=== PATIENT | female | born 1950 | race African-American/Black ===

== ENCOUNTER → 2016-05-16 | Outpatient (CLI) | payer BC ==
[~2016-05-16] MED LIST: HYDR200T5 PO; IBUP-1060 PO; TRAM50TA PO
--- NOTE | 2016-05-16 10:05 | RAD ---
DATE: 05/16/2016 EXAM: DIGITAL SCREEN BILAT W/CAD HISTORY: Screening COMPARISON: 04/30/2015 This study was interpreted with the benefit of Computerized Aided Detection (CAD). FINDINGS: The breast parenchyma shows scattered fibroglandular densities. Breast parenchyma level B. There has not been a significant change in the appearance of the breasts compared to the previous exam. There is no area of increased density in the left breast on the cc view just lateral to the plane of the nipple compatible with summation artifact similar to previous exams IMPRESSION: Benign findings BI-RADS CATEGORY: 2 BENIGN FINDING(S) RECOMMENDED FOLLOW-UP: 12M 12 MONTH FOLLOW-UP PQRS compliance statement: Patient information was entered into a reminder system with a target due date 05/16/2017 for the next mammogram. Mammography is a sensitive method for finding small breast cancers, but it does not detect them all and is not a substitute for careful clinical examination. A negative mammogram does not negate a clinically suspicious finding and should not result in delay in biopsying a clinically suspicious abnormality. "Our facility is accredited by the [employer] Mammography [employer]."
== END | disposition home or self-care (01) ==
LOC: MAMMO 10:48
PROVIDERS: ATTEND Internal Medicine
DX: Z12.31 Encounter for screening mammogram for malignant neoplasm of breast (principal)
CPT/HCPCS: 77052; G0202

== ENCOUNTER → 2017-06-12 | Outpatient (CLI) | payer MEDICARE | END | disposition home or self-care (01) | LOC: MAMMO 10:49 | DX: Z12.31 Encounter for screening mammogram for malignant neoplasm of breast (principal) | CPT/HCPCS: 77067 ==

== ENCOUNTER → 2018-07-06 | Outpatient (CLI) | payer MEDICARE ==
--- NOTE | 2018-07-08 09:43 | RAD ---
DATE: July 06, 2018 EXAM: MAMMO MARIA LUZ SCREENING BILATERAL HISTORY: Screening study. COMPARISON: 2014 and 2016 and 2018 2-D digital mammographic views of both breasts were performed in the CC and MLO projections. 3-D digital tomosynthesis images of both breasts were performed in the CC and MLO projections and reviewed on a computer workstation. This study was interpreted with the benefit of Computerized Aided Detection (CAD). FINDINGS: Breast Density: SCATTERED The breast parenchyma shows scattered fibroglandular densities. Breast parenchyma level B.. There are no dominant suspicious masses, suspicious microcalcifications or evidence of architectural distortion. Bilateral small breast nodules are seen which are similar in density and shape and contour consistent with a benign finding. IMPRESSION: No mammographic indicators for malignancy. BI-RADS CATEGORY: 2 BENIGN FINDING RECOMMENDED FOLLOW-UP: 12M 12 MONTH FOLLOW-UP PQRS compliance statement: Patient information was entered into a reminder system with a target due date July 07, 2019 for the next mammogram. Mammography is a sensitive method for finding small breast cancers, but it does not detect them all and is not a substitute for careful clinical examination. A negative mammogram does not negate a clinically suspicious finding and should not result in delay in biopsying a clinically suspicious abnormality. "Our facility is accredited by the [employer] Mammography [employer]." The patient's breast density may affect the ability of mammography to detect breast cancer. There are 4 categories of breast density, A, B, C and D. Breast density A means that most of the breast tissue is replaced with adipose tissue and therefore is not dense. Breast density B means that the breast tissue is mildly dense and scattered. Breast density C means that the breast tissue is heterogeneously dense. Breast density D means that the breast tissue is very dense. Breast densities especially C and D may decrease the sensitivity of mammography to detect breast cancer. Therefore, the patient may benefit from 3-D breast mammography (3D breast tomography) as a part of their screening mammogram. Insurance may or may not pay for this additional imaging. The patient's breast density based on today's mammogram is category B.
== END | disposition home or self-care (01) ==
LOC: MAMMO 09:23
PROVIDERS: ATTEND Nurse Practitioner Gerontology
DX: Z12.31 Encounter for screening mammogram for malignant neoplasm of breast (principal); N63.10 Unspecified lump in the right breast, unspecified quadrant; N63.20 Unspecified lump in the left breast, unspecified quadrant
CPT/HCPCS: 77063; 77067

== ENCOUNTER → 2019-07-29 | Outpatient (CLI) | payer MEDICARE, OTHER ==
--- NOTE | 2019-07-29 17:36 | RAD ---
History: Routine screening. Technique: Bilateral digital mammographic routine views were obtained with 2-D and 3-D technique including CAD - computer aided detection. Comparison: 05/16/2016, 06/12/17, 07/06/18 Findings: Breast Tissue Density B :The breast tissue is composed of mixed fatty and fibroglandular tissue. There are no suspicious masses, microcalcifications or areas of architectural distortion. Impression: Negative mammogram. BI-RADS Category 1: Negative. Normal interval followup. A mammogram does not have 100% sensitivity and therefore a negative imaging study should not delay further work up of a suspicious abnormality. The patient will receive a letter with the results in the mail. Patient information is entered into the reminder system with a target due date for the next screening mammogram. The patient will receive a reminder. "Our facility is accredited by the [employer] Mammography [employer]." BI-RADS 1 -- negative findings (within normal)
== END | disposition home or self-care (01) ==
LOC: MAMMO 14:17
PROVIDERS: ATTEND Nurse Practitioner Gerontology
DX: Z12.31 Encounter for screening mammogram for malignant neoplasm of breast (principal)
CPT/HCPCS: 77063; 77067

== ENCOUNTER 2020-12-30 19:00 | Emergency (ER) | payer MEDICARE ==
[~2020-12-30] VITALS: Ht 172.7 cm; Wt 118.2 kg
[2020-12-30] MEDS ORDERED: ONDANSETRON PF 4 MG/2 ML VIAL. IVP ONE (20:00)
[2020-12-30] MEDS ORDERED: ACETAMINOPHEN 500 MG TABLET PO ONE (20:00)
--- NOTE | 2020-12-30 20:15 | RAD ---
Single view chest dated 12/30/2020 8:12 PM: COMPARISON: None Clinical Indication: Cough and chills. Findings: Single upright portable exam of the chest was performed. Heart and mediastinal contours within normal limits. Lungs are clear. No consolidation or pleural effusion. No pneumothorax. There is some hazy o pacity at both lung bases that is likely related to under penetration and body habitus IMPRESSION: No acute radiographic abnormality. Electronically signed by: Jeovanny Wilkinson MD (12/30/2020 8:13 PM) CAROL
[2020-12-30 20:29] LABS: BASO # 0.1 x10^3/uL (0.0-0.2); BASO % 1 % (0-3); EOS % 0 % (0-3); HEMATOCRIT 39.2 % (36.0-47.0); HEMOGLOBIN 13.2 g/dL (12.0-15.5); LYMPH # 2.1 x10^3/uL (1.0-4.8); LYMPH % 17 % (24-48); MEAN CORPUSCULAR HEMOGLOBIN 28 pg (25-35); MEAN CORPUSCULAR HGB CONC 34 g/dL (31-37); MEAN CORPUSCULAR VOLUME 83 fL (79-100); MONO # 0.9 x10^3/uL (0.0-1.1); MONO % 8 % (0-9); NEUT # 9.3 x10^3/uL (1.8-7.7); NEUT % 75 % (31-73); PLATELET COUNT 206 x10^3/uL (140-400); RED BLOOD COUNT 4.71 x10^6/uL (3.50-5.40); RED CELL DISTRIBUTION WIDTH 15.5 % (11.5-14.5); WHITE BLOOD COUNT 12.4 x10^3/uL (4.0-11.0)
--- NOTE | 2020-12-30 20:30 | EKG ---
[facility] [address] [place] [address] Test Date: 2020-12-30 Test Time: 20:27:31 Pat Name: RUBA KELLY Department: Room: Gender: F Bank Boss: : 1950 Requested By: SADIE WOOD Order Number: [id number] Reading MD: Measurements Intervals [place] Rate: 77 P: 3 [place]: 156 QRS: 29 QRSD: 74 T: -15 QT: 362 QTc: 411 Interpretive Statements SINUS RHYTHM T ABNORMALITY IN ANTERIOR LEADS INFEROLATERAL LEADS ABNORMAL ECG RI6.02 No previous ECG available for comparison
[2020-12-30 20:38] LABS: CALCIUM 9.1 mg/dL (8.5-10.1); CREATININE 1.2 mg/dL (0.6-1.0); GFR 53.7; POTASSIUM 3.3 mmol/L (3.5-5.1)
[2020-12-30] MEDS: NORMAL SALINE IV SCH ×5 (20:40→23:14)
[2020-12-30 20:44] LABS: ALBUMIN 3.6 g/dL (3.4-5.0); ALBUMIN/GLOBULIN RATIO 0.8 (1.0-1.7); MAGNESIUM 1.4 mg/dL (1.8-2.4); TOTAL BILIRUBIN 0.5 mg/dL (0.2-1.0)
[2020-12-30 21:14] LABS: INFLUENZA A PATIENT NEGATIVE (NEGATIVE)
[2020-12-30 21:15] LABS: INFLUENZA B PATIENT POSITIVE (NEGATIVE)
[2020-12-30] MEDS ORDERED: OSELTAMIVIR 75 MG CAPSULE PO STA (22:06)
[2020-12-30] MEDS ORDERED: DEXAMETHASONE SOD PHOS 20 MG/5 ML VIAL. IV ONE (22:15)
[2020-12-30 22:36] VITALS: BP 160/84
[2020-12-30] MEDS ORDERED: OSEL75CA PO (22:45)
[2020-12-30] MEDS ORDERED: ONDA4TAB12 PO (22:45)
--- NOTE | 2020-12-30 22:46 | PHYS DOC ---
Past Medical History Past Medical History: Hypertension Past Surgical History: Cholecystectomy, Hysterectomy Smoking Status: Never Smoker Alcohol Use: None General Adult EDM: Chief Complaint: MULTIPLE COMPLAINTS HPI: HPI: Patient is a 70 year old female with history of hypertension who presents to the ED today complaining of fatigue, nausea, body aches, symptoms for 1 week. Patient is also complaining of chills for 2 to 3 days. Denies any fever. Denies any vomiting. Denies any abdominal pain. Denies any chest pain or shortness of breath. Review of Systems: Review of Systems: Constitutional: Reports chills, body aches, denies fever Eyes: Denies change in visual acuity. [] HENT: Denies nasal congestion or sore throat. [] Respiratory: Denies cough or shortness of breath. [] Cardiovascular: Denies chest pain or edema. [] GI: Reports nausea. Denies abdominal pain, vomiting, bloody stools or diarrhea. [] : Denies dysuria. [] Musculoskeletal: Denies back pain or joint pain. [] Integument: Denies rash. [] Neurologic: Denies headache, focal weakness or sensory changes. [] ] Psychiatric: Denies depression or anxiety. [] Heart Score: C/O Chest Pain: N/A Risk Factors: Risk Factors: DM, Current or recent (<one month) smoker, HTN, HLP, family history of CAD, obesity. Risk Scores: Score 0 - 3: 2.5% MACE over next 6 weeks - Discharge Home Score 4 - 6: 20.3% MACE over next 6 weeks - Admit for Clinical Observation Score 7 - 10: 72.7% MACE over next 6 weeks - Early Invasive Strategies Current Medications: Current Medications Medications (Trade) Dose Ordered Sig/[facility] Start Time Stop Time Status Last Admin Dose Admin Acetaminophen (Tylenol) 1,000 mg 1X ONCE 12/30/20 20:00 12/30/20 20:01 DC 12/30/20 20:40 1,000 MG Dexamethasone Sodium Phosphate (Decadron) 10 mg 1X ONCE 12/30/20 22:15 12/30/20 22:16 DC Ondansetron HCl (Zofran) 4 mg 1X ONCE 12/30/20 20:00 12/30/20 20:01 DC 12/30/20 20:40 4 MG Oseltamivir Phosphate (Tamiflu) 75 mg 1X STAT 12/30/20 22:06 12/30/20 22:10 DC Sodium Chloride 3,540 ml @ 3,540 mls/hr Q1H 12/30/20 20:00 12/30/20 20:40 3,540 MLS/HR Allergies: Allergies: Allergies Coded Allergies Type Severity Reaction Last Updated Verified No Known Drug Allergies 05/05/15 No Physical Exam: PE: Constitutional: Tired appearing well developed, well nourished, no acute distress, non-toxic appearance. [] HENT: Normocephalic, atraumatic, bilateral external ears normal, oropharynx mo ist, no oral exudates, nose normal. [] Eyes: PERRLA, EOMI, conjunctiva normal, no discharge. [] Neck: Normal range of motion, no tenderness, supple, no stridor. [] Cardiovascular:Heart rate regular rhythm, no murmur [] Lungs & Thorax: Bilateral breath sounds clear to auscultation [] Abdomen: Bowel sounds normal, soft, no tenderness, no masses, no pulsatile masses. [] Skin: Warm, dry, no erythema, no rash. [] Back: No tenderness, no CVA tenderness. [] Extremities: No tenderness, no cyanosis, no clubbing, ROM intact, no edema. [] Neurologic: Alert and oriented X 3, normal motor function, normal sensory function, no focal deficits noted. [] Psychologic: Affect normal, judgement normal, mood normal. [] Current Patient Data: Labs: Laboratory Tests Test 12/30/20 20:15 12/30/20 20:31 White Blood Count 12.4 x10^3/uL (4.0-11.0) H Red Blood Count 4.71 x10^6/uL (3.50-5.40) Hemoglobin 13.2 g/dL (12.0-15.5) Hematocrit 39.2 % (36.0-47.0) Mean Corpuscular Volume 83 fL (79-100) Mean Corpuscular Hemoglobin 28 pg (25-35) Mean Corpuscular Hemoglobin Concent 34 g/dL (31-37) Red Cell Distribution Width 15.5 % (11.5-14.5) H Platelet Count 206 x10^3/uL (140-400) Neutrophils (%) (Auto) 75 % (31-73) H Lymphocytes (%) (Auto) 17 % (24-48) L Monocytes (%) (Auto) 8 % (0-9) Eosinophils (%) (Auto) 0 % (0-3) Basophils (%) (Auto) 1 % (0-3) Neutrophils # (Auto) 9.3 x10^3/uL (1.8-7.7) H Lymphocytes # (Auto) 2.1 x10^3/uL (1.0-4.8) Monocytes # (Auto) 0.9 x10^3/uL (0.0-1.1) Eosinophils # (Auto) 0.0 x10^3/uL (0.0-0.7) Basophils # (Auto) 0.1 x10^3/uL (0.0-0.2) Sodium Level 140 mmol/L (136-145) Potassium Level 3.3 mmol/L (3.5-5.1) L Chloride Level 104 mmol/L (98-107) Carbon Dioxide Level 29 mmol/L (21-32) Anion Gap 7 (6-14) Blood Urea Nitrogen 12 mg/dL (7-20) Creatinine 1.2 mg/dL (0.6-1.0) H Estimated GFR (Cockcroft-Gault) 53.7 BUN/Creatinine Ratio 10 (6-20) Glucose Level 110 mg/dL (70-99) H Lactic Acid Level 1.6 mmol/L (0.4-2.0) Calcium Level 9.1 mg/dL (8.5-10.1) Magnesium Level 1.4 mg/dL (1.8-2.4) L Total Bilirubin 0.5 mg/dL (0.2-1.0) Aspartate Amino Transferase (AST) 25 U/L (15-37) Alanine Aminotransferase (ALT) 34 U/L (14-59) Alkaline Phosphatase 73 U/L (46-116) Troponin I Quantitative < 0.017 ng/mL (0.000-0.055) Total Protein 8.0 g/dL (6.4-8.2) Albumin 3.6 g/dL (3.4-5.0) Albumin/Globulin Ratio 0.8 (1.0-1.7) L Influenza Type A Antigen Negative (NEGATIVE) Influenza Type B Antigen Positive (NEGATIVE) SARS-CoV-2 Antigen (Rapid) Positive (NEGATIVE) *A Laboratory Tests 12/30/20 20:15 Laboratory Tests 12/30/20 20:15 Vital Signs: Vital Signs Date Time Temp Pulse Resp B/P (MAP) Pulse Ox O2 Delivery O2 Flow Rate FiO2 12/30/20 21:36 76 22 169/78 (108) 94 Room Air 12/30/20 19:41 99.6 99.6 EKG: EK interpreted by Dr. Whipple sinus rhythm heart rate 77 no STEMI [] Radiology/Procedures: Radiology/Procedures: []PROCEDURE: PORTABLE CHEST 1V Single view chest dated 12/30/2020 8:12 PM: COMPARISON: None Clinical Indication: Cough and chills. Findings: Single upright portable exam of the chest was performed. Heart and mediastinal contours within normal limits. Lungs are clear. No consolidation or pleural effusion. No pneumothorax. There is some hazy opacity at both lung bases that is likely related to under penetration and body habitus IMPRESSION: No acute radiographic abnormality. Electronically signed by: Jeovanny Wilkinson MD (12/30/2020 8:13 PM) [facility] DICTATED and SIGNED BY: JEOVANNY WILKINSON MD DATE: 12/30/[id number] 0 Course & Med Decision Making: Course & Med Decision Making Pertinent Labs and Imaging studies reviewed. (See chart for details) This is a 70-year-old female patient presenting to the ED today complaining of fatigue, nausea, body aches, symptoms for 1 week. Also complaining of chills for 2 to 3 days. Vitals on arrival to the ED temperature 99.6, heart rate 76, O2 sats 98% on room air, respiration 18, blood pressure 165/72. Chest x-ray interpreted by radiologist as negative for any acute findings. CBC with a WBC of 12.4, CMP with nothing really acute. Positive for influenza B, positive rapid Covid test. Patient has been given IV fluids, Zofran, Tylenol, Decadron and Tamiflu. Discharge to home on Tamiflu, Zofran prednisone for 4 more days. Instructed to push fluids, rest, maintain good hand hygiene and follow-up with the primary care doctor next week Raghavendra Disclaimer: Raghavendra Disclaimer: This electronic medical record was generated, in whole or in part, using a voice recognition dictation system. Departure Departure Impression: Primary Impression: Lab test positive for detection of COVID-19 virus Additional Impressions: Influenza B Fever Qualified Codes: R50.9 - Fever, unspecified Disposition: 01 HOME / SELF CARE / HOMELESS Condition: STABLE Referrals: RASHAAD FRAZIER APRN (PCP) Follow-up next week Patient Instructions: Fever, Adult, Influenza, Adult Additional Instructions: You were evaluated in the emergency room and tested positive for Covid and influenza B. Take the prescribed medications as ordered. Rest, push fluids, maintain good hand hygiene. Quarantine yourself for 10 days. Contact your primary care doctor next week and follow-up. Come back to the ED at any point symptoms worsen Scripts Ondansetron (ONDANSETRON ODT) 4 Mg Tab.rapdis 1 TAB PO PRN Q6-8HRS, #16 TAB Prov: SADIE WOOD APRN 12/30/20 Ondansetron (ONDANSETRON ODT) 4 Mg Tab.rapdis 1 TAB PO PRN Q6-8HRS, #16 TAB Prov: SADIE WOOD APRN 12/30/20 Oseltamivir Phosphate (TAMIFLU) 75 Mg Capsule 1 CAP PO BID, #10 CAP Prov: SADIE WOOD APRN 12/30/20 SADIE WOOD APRN Dec 30, 2020 22:46
[2020-12-30 22:54] LABS: BILIRUBIN,URINE NEGATIVE (NEG); CLARITY,URINE CLEAR; COLOR,URINE YELLOW; NITRITE,URINE NEGATIVE (NEG); PROTEIN,URINE NEGATIVE (NEG-TRACE); UROBILINOGEN,URINE 0.2 mg/dL (0.2 mg/dL)
[2020-12-30 23:08] LABS: BACTERIA,URINE FEW /HPF (0-FEW)
== END 2020-12-30 23:09 | disposition home or self-care (01) ==
LOC: ER 19:00
DX: U07.1 COVID-19 (principal); J10.1 Influenza due to other identified influenza virus with other respiratory manifestations; I10 Essential (primary) hypertension
CPT/HCPCS: 36415; 71045; 80053; 81001; 83605; 83735; 84145; 84484; 85025; 87040; 87426; 87804; 93005; 96374; 96375; 99285; J1100; J2405; J7030

== ENCOUNTER → 2021-02-04 | Outpatient (CLI) | payer MEDICARE ==
[~2021-02-04] MED LIST changes: +ONDA4TAB12 PO; +OSEL75CA PO
--- NOTE | 2021-02-04 17:20 | RAD ---
2 view study of the right knee Clinical indications: Right knee pain FINDINGS: No acute fracture or dislocation or lytic process is seen. There is minimal degenerative sp urring of the medial tibiofemoral joint compartment without joint space narrowing. There is mild dege nerative spurring of the patellofemoral joint compartment. A small subchondral lucency of the upper a spect of the patella is seen secondary to chondromalacia patellae. IMPRESSION: No acute fracture. See discussion above. Electronically signed by: Raul Hernandez MD (02/04/2021 5:17 PM) [id number]
== END ==
LOC: RAD 13:43
PROVIDERS: ATTEND Family Medicine
DX: M22.41 Chondromalacia patellae, right knee (principal); M76.891 Other specified enthesopathies of right lower limb, excluding foot
CPT/HCPCS: 73560

== ENCOUNTER → 2021-02-28 | Outpatient (CLI) | payer MEDICARE ==
--- NOTE | 2021-02-28 17:01 | RAD ---
Bilateral digital screening 2-D and 3-D (digital breast tomosynthesis) mammogram: Reason for examination: Routine screening. Comparison: Mammograms from 07/29/2019 and 07/06/2018. Interpretation was made with the benefit of CAD. FINDINGS: Breast density: Category B. There are scattered areas of fibroglandular density. No suspicious breast mass, malignant appearing calcifications, or architectural distortion is seen. T here are unchanged very small oval circumscribed masses in both breasts. IMPRESSION: No evidence of malignancy. Assessment: BI-RADS 2. Benign findings. Recommendation: Routine screening mammograms. The patient will receive a letter with the results in the mail. Patient information will be entered i nto the mammography reminder system with a target recall date for the next mammogram. A reminder lorraine er will be generated. Electronically signed by: She Bland MD (02/28/2021 4:58 PM) [id number]
== END ==
LOC: MAMMO 09:22
PROVIDERS: ATTEND Family Medicine
DX: Z12.31 Encounter for screening mammogram for malignant neoplasm of breast (principal)
CPT/HCPCS: 77063; 77067

== ENCOUNTER 2021-09-05 17:29 | Inpatient (IN) | payer MEDICARE ==
[~2021-09-05] VITALS: Ht 172.7 cm; Wt 124.0 kg
--- NOTE | 2021-09-05 18:27 | PHYS DOC ---
Past Medical History Past Medical History: Hypertension Past Surgical History: Cholecystectomy, Hysterectomy Smoking Status: Never Smoker Alcohol Use: None General Adult EDM: Chief Complaint: DIZZY/LIGHT HEADED HPI: HPI: Patient is a 70 year old with a history of hypertension and hyperlipidemia presents to the ER with a wake-up headache at 11 AM this morning followed by vertigo and ataxia. Patient denies any numbness or tingling denies any visual changes. Reports nausea and vomiting. Patient states that she fell asleep yesterday at 12 AM. Patient has baseline tinnitus but states that the tinnitus has not increased or change in any way. Denies any focal weakness. Review of Systems: Review of Systems: Constitutional: Denies fever or chills. [] Eyes: Denies change in visual acuity. [] HENT: Denies nasal congestion or sore throat. [] Respiratory: Denies cough or shortness of breath. [] Cardiovascular: Denies chest pain or edema. [] GI: Denies abdominal pain, nausea, vomiting, bloody stools or diarrhea. [] : Denies dysuria. [] Musculoskeletal: Denies back pain or joint pain. [] Integument: Denies rash. [] Neurologic: Vertigo, gait instability, headache denies, focal weakness or sensory changes. [] Endocrine: Denies polyuria or polydipsia. [] Lymphatic: Denies swollen glands. [] Psychiatric: Denies depression or anxiety. [] Heart Score: C/O Chest Pain: No Risk Factors: Risk Factors: DM, Current or recent (<one month) smoker, HTN, HLP, family history of CAD, obesity. Risk Scores: Score 0 - 3: 2.5% MACE over next 6 weeks - Discharge Home Score 4 - 6: 20.3% MACE over next 6 weeks - Admit for Clinical Observation Score 7 - 10: 72.7% MACE over next 6 weeks - Early Invasive Strategies Allergies: Allergies: Allergies Coded Allergies Type Severity Reaction Last Updated Verified No Known Drug Allergies 05/05/15 No Physical Exam: PE: Constitutional: Well developed, well nourished, no acute distress, non-toxic appearance. [] HENT: Normocephalic, atraumatic, bilateral external ears normal, oropharynx moist, no oral exudates, nose normal. [] Eyes: No horizontal nystagmus. PERRLA, EOMI, conjunctiva normal, no discharge. [] Neck: No nuchal rigidity. Normal range of motion, no tenderness, supple, no stridor. [] Cardiovascular:Heart rate regular rhythm, no murmur [] Lungs & Thorax: Bilateral breath sounds clear to auscultation [] Abdomen: Bowel sounds normal, soft, no tenderness, no masses, no pulsatile masses. [] Skin: Warm, dry, no erythema, no rash. [] Back: No tenderness, no CVA tenderness. [] Extremities: No tenderness, no cyanosis, no clubbing, ROM intact, no edema. [] Neurologic: Alert and oriented X 3, normal motor function, normal sensory function, no focal deficits noted. [] Psychologic: Affect normal, judgement normal, mood normal. [] EKG: EKG: [] Radiology/Procedures: Radiology/Procedures: []Exam: CT head. CTA head and neck INDICATION: Ataxia, headache TECHNIQUE: Sequential axial images through the head were obtained without the administration of IV contrast. Sequential axial images through the head and neck were obtained following the administration of 75 mL of Isovue-370. 3-D reformatted images were reconstructed from the axial data and reviewed. Exposure: One or more of the following in the visualized dose reduction techniques were utilized for this examination: 1. Automated exposure control 2. Adjustment of the MA and/or KV according to patient size 3. Use of iterative of reconstructive technique Comparisons: None FINDINGS: Head: No focal parenchymal lesion or hemorrhage is identified. There is no midline shift or sulcal effacement. Moderate patchy hypodensity in the periventricular white matter. No acute vascular territory infarction is identified. Harmon-white distinction is preserved. The ventricular system is within normal limits without compression hydroceph alus. The basal cisterns are well maintained. The visualized portions of the paranasal sinuses and mastoid air cells are well-pneumatized. No acute fractures. CTA neck: Visualized portions of the thoracic aorta are unremarkable. Two-vessel aortic arch configuration common origin brachiocephalic and left common carotid arteries. Right common carotid artery is patent without evidence of stenosis, occlusion or aneurysm. Cervical segment of the right internal carotid artery is patent without evidence of stenosis, occlusion or aneurysm. Left common carotid artery is patent without evidence of stenosis, occlusion or aneurysm. Mild plaque at the origin of the left internal carotid artery without significant stenosis. Right vertebral artery is patent to the basilar confluence without evidence stenosis, occlusion or aneurysm. Left vertebral artery is patent to the basilar confluence without evidence of stenosis, occlusion or aneurysm. Visualized paraspinal soft tissues are unremarkable. CTA HEAD: Minimal calcified plaque cavernous segment of the right internal carotid artery without significant stenosis. Right MCA is patent. Right MICHELLE is patent. Minimal calcified plaque at the cavernous segment left internal carotid artery estimated stenosis. Left MCA is patent. Left MICHELLE is patent. Basilar artery is patent without evidence of stenosis, occlusion or aneurysm. sap basis consultant are patent bilaterally. Visualized portions of the dural venous sinuses are patent. IMPRESSION: 1. Mild small vessel schema change, technically age indeterminate without recent prior imaging. No acute hemorrhage. 2. No large vessel occlusion. 3. Minimal calcified plaque cavernous segments of the internal carotid arteries bilaterally without significant stenosis. Mild plaque at the origin left inter nal carotid artery without significant stenosis. Course & Med Decision Making: Course & Med Decision Making Pertinent Labs and Imaging studies reviewed. (See chart for details) [] Discussed with neurology, patient outside tPA window. Patient will be admitted for CVA work-up Discussed with Dr Joselyn Mabry Disclaimer: Raghavendra Disclaimer: This electronic medical record was generated, in whole or in part, using a voice recognition dictation system. Departure Departure Impression: Primary Impression: CVA (cerebral vascular accident) Disposition: ADMITTED INPATIENT Condition: STABLE Referrals: NAKUL ALEGRE MD (PCP) ANGELIQUE MCCARTNEY DO Sep 05, 2021 18:27
[2021-09-05] MEDS ORDERED: IOHEXOL 300 MG/ML 100ML VIAL. IV ONE (18:45)
[2021-09-05] MEDS ORDERED: CONTRAST GIVEN. MC PRN (18:45)
--- NOTE | 2021-09-05 18:57 | RAD ---
Exam: CT head. CTA head and neck INDICATION: Ataxia, headache TECHNIQUE: Sequential axial images through the head were obtained without the administration of IV co ntrast. Sequential axial images through the head and neck were obtained following the administration of 75 mL of Isovue-370. 3-D reformatted images were reconstructed from the axial data and reviewed. Exposure: One or more of the following in the visualized dose reduction techniques were utilized for this examination: 1. Automated exposure control 2. Adjustment of the MA and/or KV according to patient size 3. Use of iterative of reconstructive technique Comparisons: None FINDINGS: Head: No focal parenchymal lesion or hemorrhage is identified. There is no midline shift or sulcal effaceme nt. Moderate patchy hypodensity in the periventricular white matter. No acute vascular territory infarcti on is identified. Harmon-white distinction is preserved. The ventricular system is within normal limits without compression hydrocephalus. The basal cisterns are well maintained. The visualized portions of the paranasal sinuses and mastoid air cells are well-pneumatized. No acute fractures. CTA neck: Visualized portions of the thoracic aorta are unremarkable. Two-vessel aortic arch configuration comm on origin brachiocephalic and left common carotid arteries. Right common carotid artery is patent without evidence of stenosis, occlusion or aneurysm. Cervical s egment of the right internal carotid artery is patent without evidence of stenosis, occlusion or aneu rysm. Left common carotid artery is patent without evidence of stenosis, occlusion or aneurysm. Mild plaque at the origin of the left internal carotid artery without significant stenosis. Right vertebral artery is patent to the basilar confluence without evidence stenosis, occlusion or an eurysm. Left vertebral artery is patent to the basilar confluence without evidence of stenosis, occlusion or aneurysm. Visualized paraspinal soft tissues are unremarkable. CTA HEAD: Minimal calcified plaque cavernous segment of the right internal carotid artery without significant s tenosis. Right MCA is patent. Right MICHELLE is patent. Minimal calcified plaque at the cavernous segment left internal carotid artery estimated stenosis. Le ft MCA is patent. Left MICHELLE is patent. Basilar artery is patent without evidence of stenosis, occlusion or aneurysm. reroller hand are patent bilater ally. Visualized portions of the dural venous sinuses are patent. IMPRESSION: 1. Mild small vessel schema change, technically age indeterminate without recent prior imaging. No a cute hemorrhage. 2. No large vessel occlusion. 3. Minimal calcified plaque cavernous segments of the internal carotid arteries bilaterally without significant stenosis. Mild plaque at the origin left internal carotid artery without significant sten osis. FOR INTERNAL CODING PURPOSES Critical result: Findings discussed with ANGELIQUE MCCARTNEY DO at 09/05/2021 6:45 PM. RESULT CODE: (C) Electronically signed by: Imani Gan MD (09/05/2021 6:55 PM) [facility]
[2021-09-05 19:28] LABS: BASO % 0 % (0-3); EOS # 0.1 x10^3/uL (0.0-0.7); EOS % 1 % (0-3); HEMATOCRIT 37.5 % (36.0-47.0); HEMOGLOBIN 12.6 g/dL (12.0-15.5); LYMPH # 4.7 x10^3/uL (1.0-4.8); LYMPH % 50 % (24-48); MEAN CORPUSCULAR HEMOGLOBIN 28 pg (25-35); MEAN CORPUSCULAR HGB CONC 34 g/dL (31-37); MEAN CORPUSCULAR VOLUME 83 fL (79-100); MONO # 0.7 x10^3/uL (0.0-1.1); MONO % 8 % (0-9); NEUT # 3.9 x10^3/uL (1.8-7.7); NEUT % 41 % (31-73); PLATELET COUNT 201 x10^3/uL (140-400); RED BLOOD COUNT 4.52 x10^6/uL (3.50-5.40); RED CELL DISTRIBUTION WIDTH 15.6 % (11.5-14.5); WHITE BLOOD COUNT 9.5 x10^3/uL (4.0-11.0)
[2021-09-05 19:38] LABS: PROTHROMBIN TIME PATIENT 13.2 SEC (11.7-14.0)
[2021-09-05 19:44] LABS: CALCIUM 8.9 mg/dL (8.5-10.1); CREATININE 1.2 mg/dL (0.6-1.0); GFR 53.7; POTASSIUM 3.9 mmol/L (3.5-5.1)
[2021-09-05 20:16] LABS: BACTERIA,URINE 0 /HPF (0-FEW); RBC,URINE OCC /HPF (0-2); WBC,URINE 0 /HPF (0-4)
[2021-09-05] MEDS ORDERED: ONDANSETRON PF 4 MG/2 ML VIAL. IVP PRN (21:15)
[2021-09-05] MEDS ORDERED: ACETAMINOPHEN 325 MG TABLET. PO PRN (21:15)
[2021-09-05 22:50] VITALS: BP 156/75
[2021-09-05] MEDS ORDERED: ASPI-630 PO (23:49)
[2021-09-05] MEDS ORDERED: METO-239 PO (23:49)
[2021-09-05] MEDS ORDERED: LOSA100T14 PO (23:49)
[2021-09-05] MEDS ORDERED: ATOR20TA58 PO (23:49)
[2021-09-05] MEDS ORDERED: HYDR12.575 PO (23:50)
[2021-09-05] MEDS ORDERED: vitamin D PO (23:50)
[2021-09-05] MEDS ORDERED: PANT40TA77 PO (23:50)
[2021-09-05] MEDS ORDERED: TIZA-75 PO (23:50)
[2021-09-06] VITALS (7 sets, daily range): BP systolic 153–176; BP diastolic 75–94
[2021-09-06 06:24] LABS: BASO % 0 % (0-3); EOS # 0.1 x10^3/uL (0.0-0.7); EOS % 1 % (0-3); HEMATOCRIT 38.7 % (36.0-47.0); HEMOGLOBIN 12.5 g/dL (12.0-15.5); LYMPH # 3.1 x10^3/uL (1.0-4.8); LYMPH % 43 % (24-48); MEAN CORPUSCULAR HEMOGLOBIN 27 pg (25-35); MEAN CORPUSCULAR HGB CONC 32 g/dL (31-37); MEAN CORPUSCULAR VOLUME 83 fL (79-100); MONO # 0.6 x10^3/uL (0.0-1.1); MONO % 8 % (0-9); NEUT # 3.5 x10^3/uL (1.8-7.7); NEUT % 48 % (31-73); PLATELET COUNT 195 x10^3/uL (140-400); RED BLOOD COUNT 4.66 x10^6/uL (3.50-5.40); WHITE BLOOD COUNT 7.3 x10^3/uL (4.0-11.0)
[2021-09-06 06:44] LABS: ALBUMIN/GLOBULIN RATIO 0.8 (1.0-1.7); CALCIUM 8.9 mg/dL (8.5-10.1); GFR 66.3; TOTAL BILIRUBIN 0.5 mg/dL (0.2-1.0)
[2021-09-06] MEDS ORDERED: tiZANidine 4 MG TABLET. PO PRN (07:00)
[2021-09-06] MEDS ORDERED: traMADol 50 MG TABLET PO PRN (07:00)
[2021-09-06] MEDS ORDERED: POTASSIUM CHLORIDE 20 MEQ TABLET.ER. PO ONE ×2 (07:30→11:30)
[2021-09-06] MEDS: PANTOPRAZOLE 40 MG TABLET.DR. PO SCH (09:36)
[2021-09-06] MEDS: LOSARTAN POTASSIUM 50 MG TABLET. PO SCH (09:36)
[2021-09-06] MEDS: CHOLECALCIFEROL (VITAMIN D3) 1,000 UNIT TABLET PO SCH (09:36)
[2021-09-06] MEDS: METOPROLOL SUCC 24HR ER 50 MG TAB.ER.24H. PO SCH (09:36)
[2021-09-06] MEDS: HYDROXYCHLOROQUINE 200 MG TABLET PO SCH (09:37)
[2021-09-06] MEDS: ASPIRIN CHEWABLE 81 MG TABLET. PO SCH (09:37)
[2021-09-06] MEDS: ATORVASTATIN CALCIUM 20 MG TABLET PO SCH (09:37)
--- NOTE | 2021-09-06 10:12 | PDOC2 ---
NEUROLOGY CONSULT Date of Service DOS: DATE: 09/06/21 TIME: 10:03 Reason for Consult Reason for Consult: Headache and dizziness Referring Physician Referring Physician: Dr. Alves Source Source: Caregiver (family), Chart review, Patient History of Present Illness History of Present Illness The patient is a 70-year-old right-handed female who had acute onset of headache at 11 AM this morning followed by vertigo and ataxia. She told Dr. Allen there was no prior history of headache, but for me she remembers having migraines in her youth. She does not remember if this headache was like a migraine, she does not know if it caused photophonophobia or nausea but she had those symptoms with her previous headaches. She describes true vertigo but there was no diplopia, dysphagia, dysarthria, numbness, or weakness. She does have chronic tinnitus, she denies hearing loss. There is no prior history of stroke, seizure, or head injury. Past Medical History Cardiovascular: HTN, Hyperlipidemia CENTRAL NERVOUS SYSTEM: Migraine GI: GERD Rheumatologic: Rheumatoid arthritis ENT: Other (Tinnitus) Past Surgical History Past Surgical History: Cholecystectomy, Hysterectomy Family History Family History: CAD, Other (Daughter had cerebral aneurysm) Social History Social History , retired, no alcohol or tobacco Current Medications Current Medications Current Medications Iohexol (Omnipaque 300 Mg/ml) 75 ml 1X ONCE IV Last administered on 09/05/21at 18:45; Start 09/05/21 at 18:45; Stop 09/05/21 at 18:46; Status DC Info (CONTRAST GIVEN -- Rx MONITORING) 1 each PRN DAILY PRN MC SEE COMMENTS; Start 09/05/21 at 18:45; Stop 09/07/21 at 18:44 Lorazepam (Ativan Inj) 1 mg 1X ONCE IVP ; Start 09/05/21 at 19:00; Stop 09/05/21 at 19:01; Status DC Ondansetron HCl (Zofran) 4 mg PRN Q4HRS PRN IVP NAUSEA/VOMITING 1ST CHOICE; Start 09/05/21 at 21:15 Acetaminophen (Tylenol) 650 mg PRN Q6HRS PRN PO MILD PAIN / TEMP > 100.3'F; Start 09/05/21 at 21:15 Aspirin (Aspirin Chewable) 81 mg DAILY PO Last administered on 09/06/21at 09:37; Start 09/06/21 at 09:00 Atorvastatin Calcium (Lipitor) 20 mg DAILY PO Last administered on 09/06/21 09:37; Start 09/06/21 at 09:00 Hydroxychloroquine Sulfate (Plaquenil) 200 mg DAILY PO Last administered on 09/06/21 09:37; Start 09/06/21 at 09:00 Metoprolol Succinate (Toprol Xl) 50 mg DAILY PO Last administered on 09/06/21 09:36; Start 09/06/21 at 09:00 Pantoprazole Sodium (Protonix) 40 mg DAILYAC PO Last administered on 09/06/21 09:36; Start 09/06/21 at 07:30 Tizanidine HCl (Zanaflex) 4 mg PRN DAILY PRN PO muscle spasms; Start 09/06/21 at 07:00 Tramadol HCl (Ultram) 50 mg PRN DAILY PRN PO MODERATE PAIN 4-6; Start 09/06/21 at 07:00 Losartan Potassium (Cozaar) 100 mg DAILY PO Last administered on 09/06/21at 09:36; Start 09/06/21 at 09:00 Vitamin D (Vitamin D3) 2,000 unit DAILY PO Last administered on 09/06/21 09:36; Start 09/06/21 at 09:00 Potassium Chloride (Klor-Con) 40 meq 1X ONCE PO Last administered on 09/06/21 09:36; Start 09/06/21 at 07:30; Stop 09/06/21 at 07:31; Status DC Potassium Chloride (Klor-Con) 40 meq 1X ONCE PO ; Start 09/06/21 at 11:30; Stop 09/06/21 at 11:31 Active Scripts Active Reported Tizanidine Hcl 4 Mg Tablet 1 Tab PO DAILY [vitamin D] 2,000 Mg PO DAILY Hydrochlorothiazide Capsule (Hydrochlorothiazide) 12.5 Mg Capsule 12.5 Mg PO DAILY Pantoprazole Sodium (Pantoprazole Sodium) 40 Mg Tablet.dr 40 Mg PO DAILYAC Metoprolol Succinate ( Xl ) (Metoprolol Succinate) 25 Mg Tab.er.24h 50 Mg PO DAILY Losartan Potassium 100 Mg Tablet 100 Mg PO DAILY Aspirin 81 Mg Tab.chew 1 Tab PO DAILY Atorvastatin Calcium 20 Mg Tablet 1 Tab PO DAILY Tramadol Hcl 50 Mg Tablet 50 Mg PO DAILY PRN Hydroxychloroquine Sulfate 200 Mg Tablet 200 Mg PO DAILY Allergies Allergies: Coded Allergies: No Known Drug Allergies (Unverified , 05/05/15) ROS Review of System Negative for fever, chills, weight loss, shortness of breath, chest pain, indigestion, hematochezia, melena, and dysuria. Full 14-point review of systems is negative. Physical Exam Physical Examination General: Well-developed, well-nourished black female in no acute distress HEENT: Normocephalic andatraumatic. Tympanic membranes clear.Temporal arteriespulsatile and nontender. Neck: Supple without bruit, no meningismus Musculoskeletal: Stability:see neurologic. Gait exam:see neurologic. Tone:see neurologic.Strength:see neurologic. Neurological: Mental Status:intact, orientation, memory, attention span/concentration, language, fund of knowledge normal. Cranial Nerves:Pupils equal and reactive to light, extraocular movements areintact, visual levi are full to confrontation. Facial sensation is normal. There is no facial asymmetry. Vestibulo-ocular reflex is intact. Palate elevates and tongue protrudes in m idline. All other cranial related problems are negative except as mentioned before.Reflexes:2+ and symmetric with flexor plantar responses. Motor:5/5 strength with normal tone and bulk. Coordination:Finger-nose finger and pkym-nm-phno testing are normal. Rapid alternating movements and fine finger movements are intact. Gait:Normal, including tandem. Sensory:Normal pinprick, vibration, light touch, proprioception. Vitals VITALS Vital Signs Date Time Temp Pulse Resp B/P (MAP) Pulse Ox O2 Delivery O2 Flow Rate FiO2 09/06/21 09:36 65 153/82 09/06/21 07:00 98.0 18 95 Room Air 98.0 Labs Labs Laboratory Tests Test 09/05/21 18:41 09/05/21 18:47 09/05/21 19:57 09/06/21 02:00 Glucose (Fingerstick) 70 mg/dL (70-99) White Blood Count 9.5 x10^3/uL (4.0-11.0) Red Blood Count 4.52 x10^6/uL (3.50-5.40) Hemoglobin 12.6 g/dL (12.0-15.5) Hematocrit 37.5 % (36.0-47.0) Mean Corpuscular Volume 83 fL (79-100) Mean Corpuscular Hemoglobin 28 pg (25-35) Mean Corpuscular Hemoglobin Concent 34 g/dL (31-37) Red Cell Distribution Width 15.6 % (11.5-14.5) Platelet Count 201 x10^3/uL (140-400) Neutrophils (%) (Auto) 41 % (31-73) Lymphocytes (%) (Auto) 50 % (24-48) Monocytes (%) (Auto) 8 % (0-9) Eosinophils (%) (Auto) 1 % (0-3) Basophils (%) (Auto) 0 % (0-3) Neutrophils # (Auto) 3.9 x10^3/uL (1.8-7.7) Lymphocytes # (Auto) 4.7 x10^3/uL (1.0-4.8) Monocytes # (Auto) 0.7 x10^3/uL (0.0-1.1) Eosinophils # (Auto) 0.1 x10^3/uL (0.0-0.7) Basophils # (Auto) 0.0 x10^3/uL (0.0-0.2) Prothrombin Time 13.2 SEC (11.7-14.0) Prothromb Time International Ratio 1.0 (0.8-1.1) Activated Partial Thromboplast Time 28 SEC (24-38) Sodium Level 140 mmol/L (136-145) Potassium Level 3.9 mmol/L (3.5-5.1) Chloride Level 104 mmol/L (98-107) Carbon Dioxide Level 31 mmol/L (21-32) Anion Gap 5 (6-14) Blood Urea Nitrogen 12 mg/dL (7-20) Creatinine 1.2 mg/dL (0.6-1.0) Estimated GFR (Cockcroft-Gault) 53.7 Glucose Level 83 mg/dL (70-99) Calcium Level 8.9 mg/dL (8.5-10.1) Troponin I High Sensitivity 11 ng/L (4-50) Urine Collection Type Unknown Urine Color (Auto) Colorless Urine Turbidity Clear Urine pH (Auto) 6.0 (<5.0-8.0) Urine Specific [place] 1.044 (1.000-1.030) Urine Protein (Auto) Negative mg/dL (Negative) Urine Glucose (Auto)(UA) Negative mg/dL (Negative) Urine Ketones (Auto) Negative mg/dL (Negative) Urine Blood (Auto) Trace (Negative) Urine Nitrite (Auto) Negative (Negative) Urine Bilirubin (Auto) Negative (Negative) Urine Urobilinogen (Auto) Normal mg/dL (Normal) Urine Leukocyte Esterase (Auto) Negative (Negative) Urine RBC Occ /HPF (0-2) Urine WBC 0 /HPF (0-4) Urine Squamous Epithelial Cells Few /LPF Urine Bacteria 0 /HPF (0-FEW) SARS-CoV-2 Antigen (Rapid) Negative (NEGATIVE) Test 09/06/21 04:50 White Blood Count 7.3 x10^3/uL (4.0-11.0) Red Blood Count 4.66 x10^6/uL (3.50-5.40) Hemoglobin 12.5 g/dL (12.0-15.5) Hematocrit 38.7 % (36.0-47.0) Mean Corpuscular Volume 83 fL (79-100) Mean Corpuscular Hemoglobin 27 pg (25-35) Mean Corpuscular Hemoglobin Concent 32 g/dL (31-37) Red Cell Distribution Width 16.0 % (11.5-14.5) Platelet Count 195 x10^3/uL (140-400) Neutrophils (%) (Auto) 48 % (31-73) Lymphocytes (%) (Auto) 43 % (24-48) Monocytes (%) (Auto) 8 % (0-9) Eosinophils (%) (Auto) 1 % (0-3) Basophils (%) (Auto) 0 % (0-3) Neutrophils # (Auto) 3.5 x10^3/uL (1.8-7.7) Lymphocytes # (Auto) 3.1 x10^3/uL (1.0-4.8) Monocytes # (Auto) 0.6 x10^3/uL (0.0-1.1) Eosinophils # (Auto) 0.1 x10^3/uL (0.0-0.7) Basophils # (Auto) 0.0 x10^3/uL (0.0-0.2) Sodium Level 142 mmol/L (136-145) Potassium Level 3.0 mmol/L (3.5-5.1) Chloride Level 104 mmol/L (98-107) Carbon Dioxide Level 27 mmol/L (21-32) Anion Gap 11 (6-14) Blood Urea Nitrogen 9 mg/dL (7-20) Creatinine 1.0 mg/dL (0.6-1.0) Estimated GFR (Cockcroft-Gault) 66.3 BUN/Creatinine Ratio 9 (6-20) Glucose Level 102 mg/dL (70-99) Calcium Level 8.9 mg/dL (8.5-10.1) Magnesium Level 1.7 mg/dL (1.8-2.4) Total Bilirubin 0.5 mg/dL (0.2-1.0) Aspartate Amino Transf (AST/SGOT) 28 U/L (15-37) Alanine Aminotransferase (ALT/SGPT) 33 U/L (14-59) Alkaline Phosphatase 69 U/L (46-116) Total Protein 7.0 g/dL (6.4-8.2) Albumin 3.0 g/dL (3.4-5.0) Albumin/Globulin Ratio 0.8 (1.0-1.7) Thyroid Stimulating Hormone (TSH) 1.924 uIU/mL (0.358-3.74) Laboratory Tests Test 09/05/21 18:41 09/05/21 18:47 09/05/21 19:57 09/06/21 02:00 Glucose (Fingerstick) 70 mg/dL (70-99) White Blood Count 9.5 x10^3/uL (4.0-11.0) Red Blood Count 4.52 x10^6/uL (3.50-5.40) Hemoglobin 12.6 g/dL (12.0-15.5) Hematocrit 37.5 % (36.0-47.0) Mean Corpuscular Volume 83 fL (79-100) Mean Corpuscular Hemoglobin 28 pg (25-35) Mean Corpuscular Hemoglobin Concent 34 g/dL (31-37) Red Cell Distribution Width 15.6 % (11.5-14.5) Platelet Count 201 x10^3/uL (140-400) Neutrophils (%) (Auto) 41 % (31-73) Lymphocytes (%) (Auto) 50 % (24-48) Monocytes (%) (Auto) 8 % (0-9) Eosinophils (%) (Auto) 1 % (0-3) Basophils (%) (Auto) 0 % (0-3) Neutrophils # (Auto) 3.9 x10^3/uL (1.8-7.7) Lymphocytes # (Auto) 4.7 x10^3/uL (1.0-4.8) Monocytes # (Auto) 0.7 x10^3/uL (0.0-1.1) Eosinophils # (Auto) 0.1 x10^3/uL (0.0-0.7) Basophils # (Auto) 0.0 x10^3/uL (0.0-0.2) Prothrombin Time 13.2 SEC (11.7-14.0) Prothromb Time International Ratio 1.0 (0.8-1.1) Activated Partial Thromboplast Time 28 SEC (24-38) Sodium Level 140 mmol/L (136-145) Potassium Level 3.9 mmol/L (3.5-5.1) Chloride Level 104 mmol/L (98-107) Carbon Dioxide Level 31 mmol/L (21-32) Anion Gap 5 (6-14) Blood Urea Nitrogen 12 mg/dL (7-20) Creatinine 1.2 mg/dL (0.6-1.0) Estimated GFR (Cockcroft-Gault) 53.7 Glucose Level 83 mg/dL (70-99) Calcium Level 8.9 mg/dL (8.5-10.1) Troponin I High Sensitivity 11 ng/L (4-50) Urine Collection Type Unknown Urine Color (Auto) Colorless Urine Turbidity Clear Urine pH (Auto) 6.0 (<5.0-8.0) Urine Specific [place] 1.044 (1.000-1.030) Urine Protein (Auto) Negative mg/dL (Negative) Urine Glucose (Auto)(UA) Negative mg/dL (Negative) Urine Ketones (Auto) Negative mg/dL (Negative) Urine Blood (Auto) Trace (Negative) Urine Nitrite (Auto) Negative (Negative) Urine Bilirubin (Auto) Negative (Negative) Urine Urobilinogen (Auto) Normal mg/dL (Normal) Urine Leukocyte Esterase (Auto) Negative (Negative) Urine RBC Occ /HPF (0-2) Urine WBC 0 /HPF (0-4) Urine Squamous Epithelial Cells Few /LPF Urine Bacteria 0 /HPF (0-FEW) SARS-CoV-2 Antigen (Rapid) Negative (NEGATIVE) Test 09/06/21 04:50 White Blood Count 7.3 x10^3/uL (4.0-11.0) Red Blood Count 4.66 x10^6/uL (3.50-5.40) Hemoglobin 12.5 g/dL (12.0-15.5) Hematocrit 38.7 % (36.0-47.0) Mean Corpuscular Volume 83 fL (79-100) Mean Corpuscular Hemoglobin 27 pg (25-35) Mean Corpuscular Hemoglobin Concent 32 g/dL (31-37) Red Cell Distribution Width 16.0 % (11.5-14.5) Platelet Count 195 x10^3/uL (140-400) Neutrophils (%) (Auto) 48 % (31-73) Lymphocytes (%) (Auto) 43 % (24-48) Monocytes (%) (Auto) 8 % (0-9) Eosinophils (%) (Auto) 1 % (0-3) Basophils (%) (Auto) 0 % (0-3) Neutrophils # (Auto) 3.5 x10^3/uL (1.8-7.7) Lymphocytes # (Auto) 3.1 x10^3/uL (1.0-4.8) Monocytes # (Auto) 0.6 x10^3/uL (0.0-1.1) Eosinophils # (Auto) 0.1 x10^3/uL (0.0-0.7) Basophils # (Auto) 0.0 x10^3/uL (0.0-0.2) Sodium Level 142 mmol/L (136-145) Potassium Level 3.0 mmol/L (3.5-5.1) Chloride Level 104 mmol/L (98-107) Carbon Dioxide Level 27 mmol/L (21-32) Anion Gap 11 (6-14) Blood Urea Nitrogen 9 mg/dL (7-20) Creatinine 1.0 mg/dL (0.6-1.0) Estimated GFR (Cockcroft-Gault) 66.3 BUN/Creatinine Ratio 9 (6-20) Glucose Level 102 mg/dL (70-99) Calcium Level 8.9 mg/dL (8.5-10.1) Magnesium Level 1.7 mg/dL (1.8-2.4) Total Bilirubin 0.5 mg/dL (0.2-1.0) Aspartate Amino Transf (AST/SGOT) 28 U/L (15-37) Alanine Aminotransferase (ALT/SGPT) 33 U/L (14-59) Alkaline Phosphatase 69 U/L (46-116) Total Protein 7.0 g/dL (6.4-8.2) Albumin 3.0 g/dL (3.4-5.0) Albumin/Globulin Ratio 0.8 (1.0-1.7) Thyroid Stimulating Hormone (TSH) 1.924 uIU/mL (0.358-3.74) Images Images CT head. CTA head and neck INDICATION: Ataxia, headache TECHNIQUE: Sequential axial images through the head were obtained without the administration of IV contrast. Sequential axial images through the head and neck were obtained following the administration of 75 mL of Isovue-370. 3-D reformatted images were reconstructed from the axial data and reviewed. Exposure: One or more of the following in the visualized dose reduction techniques were utilized for this examination: 1. Automated exposure control 2. Adjustment of the MA and/or KV according to patient size 3. Use of iterative of reconstructive technique Comparisons: None FINDINGS: Head: No focal parenchymal lesion or hemorrhage is identified. There is no midline shift or sulcal effacement. Moderate patchy hypodensity in the periventricular white matter. No acute vascular territory infarction is identified. Harmon-white distinction is preserved. The ventricular system is within normal limits without compression hydrocephalus. The basal cisterns are well maintained. The visualized portions of the paranasal sinuses and mastoid air cells are well- pneumatized. No acute fractures. CTA neck: Visualized portions of the thoracic aorta are unremarkable. Two-vessel aortic arch configuration common origin brachiocephalic and left common carotid arteries. Right common carotid artery is patent without evidence of stenosis, occlusion or aneurysm. Cervical segment of the right internal carotid artery is patent without evidence of stenosis, occlusion or aneurysm. Left common carotid artery is patent without evidence of stenosis, occlusion or aneurysm. Mild plaque at the origin of the left internal carotid artery without significant stenosis. Right vertebral artery is patent to the basilar confluence without evidence stenosis, occlusion or aneurysm. Left vertebral artery is patent to the basilar confluence without evidence of stenosis, occlusion or aneurysm. Visualized paraspinal soft tissues are unremarkable. CTA HEAD: Minimal calcified plaque cavernous segment of the right internal carotid artery without significant stenosis. Right MCA is patent. Right MICHELLE is patent. Minimal calcified plaque at the cavernous segment left internal carotid artery estimated stenosis. Left MCA is patent. Left MICHELLE is patent. Basilar artery is patent without evidence of stenosis, occlusion or aneurysm. configuration management analyst are patent bilaterally. Visualized portions of the dural venous sinuses are patent. IMPRESSION: 1. Mild small vessel schema change, technically age indeterminate without recent prior imaging. No acute hemorrhage. 2. No large vessel occlusion. 3. Minimal calcified plaque cavernous segments of the internal carotid arteries bilaterally without significant stenosis. Mild plaque at the origin left internal carotid artery without significant stenosis. Assessment/Plan Assessment/Plan Impression: Most likely this was an attack of migrainous vertigo, consider subarachnoid hemorrhage, brainstem stroke, vestibular neuronitis, all unlikely. Recommendations: I discussed the case with Dr. Allen yesterday. First, the patient was not a candidate for alteplase, there is no evidence that she had a stroke. We also discussed possibly doing a lumbar puncture, the had no nuchal rigidity or evidence of an aneurysm on the CT angiogram, so we held off on that MRI of the brain Echocardiogram if it does show a stroke Aspirin Statin Rehabilitation screening Supportive care Discussed with patient's and daughter Thank you for letting me help with the patient's care. CLAUDE CHAVES MD Sep 06, 2021 10:12
--- NOTE | 2021-09-06 11:21 | PDOC1 ---
History and Physical Date of Admission Date of Admission DATE: 09/06/21 TIME: 11:07 Identification/Chief Complaint Chief Complaint Dizziness, ataxia Source Source: Chart review, Patient History of Present Illness History of Present Illness Patient is a 70-year-old female with past medical history HTN, HLD, who presents to the ED with complaints of headache, dizziness, and ataxia since yesterday morning. She denies any nausea, vomiting, numbness, or tingling. States she was in her normal baseline state of health when she went to sleep the evening prior. She notes a history of tinnitus, but states this did not change. Labs on admission showed sodium 142, potassium 3.0, magnesium 1.7, HDL 78. CT head and CTA head and neck, did not mild small vessel ischema, minimal calcified plaque cavernous segments of the internal carotid arteries bilaterally, mild plaque at the origin of left internal carotid artery without significant stenosis, no large vessel occlusion. Potassium was replaced in the ED and consult to neurology. Patient was admitted for further medical management. Past Medical History Cardiovascular: HTN, Hyperlipidemia CENTRAL NERVOUS SYSTEM: Migraine GI: GERD Rheumatologic: Rheumatoid arthritis ENT: Other (Tinnitus) Past Surgical History Past Surgical History: Cholecystectomy, Hysterectomy Family History Family History: Heart Disease, Hypertension Social History Smoke: Quit ALCOHOL: rare Drugs: None Current Problem List Problem List Problems Medical Problems: (1) CVA (cerebral vascular accident) Status: Acute Current Medications Current Medications Current Medications Iohexol (Omnipaque 300 Mg/ml) 75 ml 1X ONCE IV Last administered on 09/05/21at 18:45; Start 09/05/21 at 18:45; Stop 09/05/21 at 18:46; Status DC Info (CONTRAST GIVEN -- Rx MONITORING) 1 each PRN DAILY PRN MC SEE COMMENTS; Start 09/05/21 at 18:45; Stop 09/07/21 at 18:44 Lorazepam (Ativan Inj) 1 mg 1X ONCE IVP ; Start 09/05/21 at 19:00; Stop 09/05/21 at 19:01; Status DC Ondansetron HCl (Zofran) 4 mg PRN Q4HRS PRN IVP NAUSEA/VOMITING 1ST CHOICE; Start 09/05/21 at 21:15 Acetaminophen (Tylenol) 650 mg PRN Q6HRS PRN PO MILD PAIN / TEMP > 100.3'F; Start 09/05/21 at 21:15 Aspirin (Aspirin Chewable) 81 mg DAILY PO Last administered on 09/06/21at 09:37; Start 09/06/21 at 09:00 Atorvastatin Calcium (Lipitor) 20 mg DAILY PO Last administered on 09/06/21at 09:37; Start 09/06/21 at 09:00 Hydroxychloroquine Sulfate (Plaquenil) 200 mg DAILY PO Last administered on 09/06/21 09:37; Start 09/06/21 at 09:00 Metoprolol Succinate (Toprol Xl) 50 mg DAILY PO Last administered on 09/06/21 09:36; Start 09/06/21 at 09:00 Pantoprazole Sodium (Protonix) 40 mg DAILYAC PO Last administered on 09/06/21 09:36; Start 09/06/21 at 07:30 Tizanidine HCl (Zanaflex) 4 mg PRN DAILY PRN PO muscle spasms; Start 09/06/21 at 07:00 Tramadol HCl (Ultram) 50 mg PRN DAILY PRN PO MODERATE PAIN 4-6; Start 09/06/21 at 07:00 Losartan Potassium (Cozaar) 100 mg DAILY PO Last administered on 09/06/21at 09:36; Start 09/06/21 at 09:00 Vitamin D (Vitamin D3) 2,000 unit DAILY PO Last administered on 09/06/21at 09:36; Start 09/06/21 at 09:00 Potassium Chloride (Klor-Con) 40 meq 1X ONCE PO Last administered on 09/06/21 09:36; Start 09/06/21 at 07:30; Stop 09/06/21 at 07:31; Status DC Potassium Chloride (Klor-Con) 40 meq 1X ONCE PO ; Start 09/06/21 at 11:30; Stop 09/06/21 at 11:31 Active Scripts Active Reported Tizanidine Hcl 4 Mg Tablet 1 Tab PO DAILY [vitamin D] 2,000 Mg PO DAILY Hydrochlorothiazide Capsule (Hydrochlorothiazide) 12.5 Mg Capsule 12.5 Mg PO DAILY Pantoprazole Sodium (Pantoprazole Sodium) 40 Mg Tablet.dr 40 Mg PO DAILYAC Metoprolol Succinate ( Xl ) (Metoprolol Succinate) 25 Mg Tab.er.24h 50 Mg PO DAILY Losartan Potassium 100 Mg Tablet 100 Mg PO DAILY Aspirin 81 Mg Tab.chew 1 Tab PO DAILY Atorvastatin Calcium 20 Mg Tablet 1 Tab PO DAILY Tramadol Hcl 50 Mg Tablet 50 Mg PO DAILY PRN Hydroxychloroquine Sulfate 200 Mg Tablet 200 Mg PO DAILY Allergies Allergies: Coded Allergies: No Known Drug Allergies (Unverified , 05/05/15) ROS Review of System GENERAL: No history of weight change, weakness or fevers. SKIN: No bruising, hair changes or rashes. EYES: No blurred, double or loss of vision. NOSE AND THROAT: No history of nosebleeds, hoarseness or sore throat. HEART: Denies chest pain, denies palpitations. LUNGS: Denies cough, hemoptysis, wheezing or shortness of breath. GASTROINTESTINAL: Denies nausea, vomiting, abdominal pain. GENITOURINARY: Denies dysuria, frequency, urgency, hematuria. NEUROLOGIC: Dizziness and ataxia. Denies history of numbness, tingling, tremor or weakness. PSYCHIATRIC: Denies anxiety, denies depression. ENDOCRINE: No history of heat or cold intolerance, polyuria or polydipsia. EXTREMITIES: Denies muscle weakness, joint pain, pain on walking or stiffness. Physical Exam Physical Exam General: Alert, Oriented X3, Cooperative, No acute distress. Morbidly obese. HEENT: Horizontal nystagmus. PERRLA, EOMI Lungs: Clear to auscultation, Normal air movement Heart: RRR, no murmurs Cardiovascular: S1, S2 Abdomen: Normal bowel sounds, Soft, No tenderness Extremities: No clubbing, No cyanosis Skin: No rashes, No significant lesion Neuro: Normal speech, Normal tone, Sensation intact Psych/Mental Status: Mental status NL, Mood NL Vitals Vitals Vital Signs Date Time Temp Pulse Resp B/P (MAP) Pulse Ox O2 Delivery O2 Flow Rate FiO2 09/06/21 09:36 65 153/82 09/06/21 07:00 98.0 18 95 Room Air 98.0 Labs Labs Laboratory Tests Test 09/05/21 18:41 09/05/21 18:47 09/05/21 19:57 09/06/21 02:00 Glucose (Fingerstick) 70 mg/dL (70-99) White Blood Count 9.5 x10^3/uL (4.0-11.0) Red Blood Count 4.52 x10^6/uL (3.50-5.40) Hemoglobin 12.6 g/dL (12.0-15.5) Hematocrit 37.5 % (36.0-47.0) Mean Corpuscular Volume 83 fL (79-100) Mean Corpuscular Hemoglobin 28 pg (25-35) Mean Corpuscular Hemoglobin Concent 34 g/dL (31-37) Red Cell Distribution Width 15.6 % (11.5-14.5) Platelet Count 201 x10^3/uL (140-400) Neutrophils (%) (Auto) 41 % (31-73) Lymphocytes (%) (Auto) 50 % (24-48) Monocytes (%) (Auto) 8 % (0-9) Eosinophils (%) (Auto) 1 % (0-3) Basophils (%) (Auto) 0 % (0-3) Neutrophils # (Auto) 3.9 x10^3/uL (1.8-7.7) Lymphocytes # (Auto) 4.7 x10^3/uL (1.0-4.8) Monocytes # (Auto) 0.7 x10^3/uL (0.0-1.1) Eosinophils # (Auto) 0.1 x10^3/uL (0.0-0.7) Basophils # (Auto) 0.0 x10^3/uL (0.0-0.2) Prothrombin Time 13.2 SEC (11.7-14.0) Prothromb Time International Ratio 1.0 (0.8-1.1) Activated Partial Thromboplast Time 28 SEC (24-38) Sodium Level 140 mmol/L (136-145) Potassium Level 3.9 mmol/L (3.5-5.1) Chloride Level 104 mmol/L (98-107) Carbon Dioxide Level 31 mmol/L (21-32) Anion Gap 5 (6-14) Blood Urea Nitrogen 12 mg/dL (7-20) Creatinine 1.2 mg/dL (0.6-1.0) Estimated GFR (Cockcroft-Gault) 53.7 Glucose Level 83 mg/dL (70-99) Calcium Level 8.9 mg/dL (8.5-10.1) Troponin I High Sensitivity 11 ng/L (4-50) Urine Collection Type Unknown Urine Color (Auto) Colorless Urine Turbidity Clear Urine pH (Auto) 6.0 (<5.0-8.0) Urine Specific [place] 1.044 (1.000-1.030) Urine Protein (Auto) Negative mg/dL (Negative) Urine Glucose (Auto)(UA) Negative mg/dL (Negative) Urine Ketones (Auto) Negative mg/dL (Negative) Urine Blood (Auto) Trace (Negative) Urine Nitrite (Auto) Negative (Negative) Urine Bilirubin (Auto) Negative (Negative) Urine Urobilinogen (Auto) Normal mg/dL (Normal) Urine Leukocyte Esterase (Auto) Negative (Negative) Urine RBC Occ /HPF (0-2) Urine WBC 0 /HPF (0-4) Urine Squamous Epithelial Cells Few /LPF Urine Bacteria 0 /HPF (0-FEW) SARS-CoV-2 Antigen (Rapid) Negative (NEGATIVE) Test 09/06/21 04:50 White Blood Count 7.3 x10^3/uL (4.0-11.0) Red Blood Count 4.66 x10^6/uL (3.50-5.40) Hemoglobin 12.5 g/dL (12.0-15.5) Hematocrit 38.7 % (36.0-47.0) Mean Corpuscular Volume 83 fL (79-100) Mean Corpuscular Hemoglobin 27 pg (25-35) Mean Corpuscular Hemoglobin Concent 32 g/dL (31-37) Red Cell Distribution Width 16.0 % (11.5-14.5) Platelet Count 195 x10^3/uL (140-400) Neutrophils (%) (Auto) 48 % (31-73) Lymphocytes (%) (Auto) 43 % (24-48) Monocytes (%) (Auto) 8 % (0-9) Eosinophils (%) (Auto) 1 % (0-3) Basophils (%) (Auto) 0 % (0-3) Neutrophils # (Auto) 3.5 x10^3/uL (1.8-7.7) Lymphocytes # (Auto) 3.1 x10^3/uL (1.0-4.8) Monocytes # (Auto) 0.6 x10^3/uL (0.0-1.1) Eosinophils # (Auto) 0.1 x10^3/uL (0.0-0.7) Basophils # (Auto) 0.0 x10^3/uL (0.0-0.2) Sodium Level 142 mmol/L (136-145) Potassium Level 3.0 mmol/L (3.5-5.1) Chloride Level 104 mmol/L (98-107) Carbon Dioxide Level 27 mmol/L (21-32) Anion Gap 11 (6-14) Blood Urea Nitrogen 9 mg/dL (7-20) Creatinine 1.0 mg/dL (0.6-1.0) Estimated GFR (Cockcroft-Gault) 66.3 BUN/Creatinine Ratio 9 (6-20) Glucose Level 102 mg/dL (70-99) Calcium Level 8.9 mg/dL (8.5-10.1) Magnesium Level 1.7 mg/dL (1.8-2.4) Total Bilirubin 0.5 mg/dL (0.2-1.0) Aspartate Amino Transf (AST/SGOT) 28 U/L (15-37) Alanine Aminotransferase (ALT/SGPT) 33 U/L (14-59) Alkaline Phosphatase 69 U/L (46-116) Total Protein 7.0 g/dL (6.4-8.2) Albumin 3.0 g/dL (3.4-5.0) Albumin/Globulin Ratio 0.8 (1.0-1.7) Triglycerides Level 117 mg/dL (0-150) Cholesterol Level 159 mg/dL (0-200) LDL Cholesterol, Calculated 58 mg/dL (0-100) VLDL Cholesterol, Calculated 23 mg/dL (0-40) Non-HDL Cholesterol Calculated 81 mg/dL (0-129) HDL Cholesterol 78 mg/dL (40-60) Cholesterol/HDL Ratio 2.0 Vitamin B12 Level 718 pg/mL (247-911) Thyroid Stimulating Hormone (TSH) 1.924 uIU/mL (0.358-3.74) Laboratory Tests Test 09/05/21 18:41 09/05/21 18:47 09/05/21 19:57 09/06/21 02:00 Glucose (Fingerstick) 70 mg/dL (70-99) White Blood Count 9.5 x10^3/uL (4.0-11.0) Red Blood Count 4.52 x10^6/uL (3.50-5.40) Hemoglobin 12.6 g/dL (12.0-15.5) Hematocrit 37.5 % (36.0-47.0) Mean Corpuscular Volume 83 fL (79-100) Mean Corpuscular Hemoglobin 28 pg (25-35) Mean Corpuscular Hemoglobin Concent 34 g/dL (31-37) Red Cell Distribution Width 15.6 % (11.5-14.5) Platelet Count 201 x10^3/uL (140-400) Neutrophils (%) (Auto) 41 % (31-73) Lymphocytes (%) (Auto) 50 % (24-48) Monocytes (%) (Auto) 8 % (0-9) Eosinophils (%) (Auto) 1 % (0-3) Basophils (%) (Auto) 0 % (0-3) Neutrophils # (Auto) 3.9 x10^3/uL (1.8-7.7) Lymphocytes # (Auto) 4.7 x10^3/uL (1.0-4.8) Monocytes # (Auto) 0.7 x10^3/uL (0.0-1.1) Eosinophils # (Auto) 0.1 x10^3/uL (0.0-0.7) Basophils # (Auto) 0.0 x10^3/uL (0.0-0.2) Prothrombin Time 13.2 SEC (11.7-14.0) Prothromb Time International Ratio 1.0 (0.8-1.1) Activated Partial Thromboplast Time 28 SEC (24-38) Sodium Level 140 mmol/L (136-145) Potassium Level 3.9 mmol/L (3.5-5.1) Chloride Level 104 mmol/L (98-107) Carbon Dioxide Level 31 mmol/L (21-32) Anion Gap 5 (6-14) Blood Urea Nitrogen 12 mg/dL (7-20) Creatinine 1.2 mg/dL (0.6-1.0) Estimated GFR (Cockcroft-Gault) 53.7 Glucose Level 83 mg/dL (70-99) Calcium Level 8.9 mg/dL (8.5-10.1) Troponin I High Sensitivity 11 ng/L (4-50) Urine Collection Type Unknown Urine Color (Auto) Colorless Urine Turbidity Clear Urine pH (Auto) 6.0 (<5.0-8.0) Urine Specific [place] 1.044 (1.000-1.030) Urine Protein (Auto) Negative mg/dL (Negative) Urine Glucose (Auto)(UA) Negative mg/dL (Negative) Urine Ketones (Auto) Negative mg/dL (Negative) Urine Blood (Auto) Trace (Negative) Urine Nitrite (Auto) Negative (Negative) Urine Bilirubin (Auto) Negative (Negative) Urine Urobilinogen (Auto) Normal mg/dL (Normal) Urine Leukocyte Esterase (Auto) Negative (Negative) Urine RBC Occ /HPF (0-2) Urine WBC 0 /HPF (0-4) Urine Squamous Epithelial Cells Few /LPF Urine Bacteria 0 /HPF (0-FEW) SARS-CoV-2 Antigen (Rapid) Negative (NEGATIVE) Test 09/06/21 04:50 White Blood Count 7.3 x10^3/uL (4.0-11.0) Red Blood Count 4.66 x10^6/uL (3.50-5.40) Hemoglobin 12.5 g/dL (12.0-15.5) Hematocrit 38.7 % (36.0-47.0) Mean Corpuscular Volume 83 fL (79-100) Mean Corpuscular Hemoglobin 27 pg (25-35) Mean Corpuscular Hemoglobin Concent 32 g/dL (31-37) Red Cell Distribution Width 16.0 % (11.5-14.5) Platelet Count 195 x10^3/uL (140-400) Neutrophils (%) (Auto) 48 % (31-73) Lymphocytes (%) (Auto) 43 % (24-48) Monocytes (%) (Auto) 8 % (0-9) Eosinophils (%) (Auto) 1 % (0-3) Basophils (%) (Auto) 0 % (0-3) Neutrophils # (Auto) 3.5 x10^3/uL (1.8-7.7) Lymphocytes # (Auto) 3.1 x10^3/uL (1.0-4.8) Monocytes # (Auto) 0.6 x10^3/uL (0.0-1.1) Eosinophils # (Auto) 0.1 x10^3/uL (0.0-0.7) Basophils # (Auto) 0.0 x10^3/uL (0.0-0.2) Sodium Level 142 mmol/L (136-145) Potassium Level 3.0 mmol/L (3.5-5.1) Chloride Level 104 mmol/L (98-107) Carbon Dioxide Level 27 mmol/L (21-32) Anion Gap 11 (6-14) Blood Urea Nitrogen 9 mg/dL (7-20) Creatinine 1.0 mg/dL (0.6-1.0) Estimated GFR (Cockcroft-Gault) 66.3 BUN/Creatinine Ratio 9 (6-20) Glucose Level 102 mg/dL (70-99) Calcium Level 8.9 mg/dL (8.5-10.1) Magnesium Level 1.7 mg/dL (1.8-2.4) Total Bilirubin 0.5 mg/dL (0.2-1.0) Aspartate Amino Transf (AST/SGOT) 28 U/L (15-37) Alanine Aminotransferase (ALT/SGPT) 33 U/L (14-59) Alkaline Phosphatase 69 U/L (46-116) Total Protein 7.0 g/dL (6.4-8.2) Albumin 3.0 g/dL (3.4-5.0) Albumin/Globulin Ratio 0.8 (1.0-1.7) Triglycerides Level 117 mg/dL (0-150) Cholesterol Level 159 mg/dL (0-200) LDL Cholesterol, Calculated 58 mg/dL (0-100) VLDL Cholesterol, Calculated 23 mg/dL (0-40) Non-HDL Cholesterol Calculated 81 mg/dL (0-129) HDL Cholesterol 78 mg/dL (40-60) Cholesterol/HDL Ratio 2.0 Vitamin B12 Level 718 pg/mL (247-911) Thyroid Stimulating Hormone (TSH) 1.924 uIU/mL (0.358-3.74) Images Images PATIENT: RUBA KELLY ACCOUNT: [id number] : 1950 LOCATION: ER AGE: 70 SEX: F EXAM STATUS: PRE ER ORD. PHYSICIAN: ANGELIQUE MCCARTNEY DO REASON: ATAXIA, HEADACHE, VERTIGO. ED [phone] PROCEDURE: CT CODE STROKE HEAD WO Exam: CT head. CTA head and neck INDICATION: Ataxia, headache TECHNIQUE: Sequential axial images through the head were obtained without the administration of IV contrast. Sequential axial images through the head and neck were obtained following the administration of 75 mL of Isovue-370. 3-D reformatted images were reconstructed from the axial data and reviewed. Exposure: One or more of the following in the visualized dose reduction techniques were utilized for this examination: 1. Automated exposure control 2. Adjustment of the MA and/or KV according to patient size 3. Use of iterative of reconstructive technique Comparisons: None FINDINGS: Head: No focal parenchymal lesion or hemorrhage is identified. There is no midline shift or sulcal effacement. Moderate patchy hypodensity in the periventricular white matter. No acute vascular territory infarction is identified. Harmon-white distinction is preserved. The ventricular system is within normal limits without compression hydrocephalus. The basal cisterns are well maintained. The visualized portions of the paranasal sinuses and mastoid air cells are well- pneumatized. No acute fractures. CTA neck: Visualized portions of the thoracic aorta are unremarkable. Two-vessel aortic arch configuration common origin brachiocephalic and left common carotid arteries. Right common carotid artery is patent without evidence of stenosis, occlusion or aneurysm. Cervical segment of the right internal carotid artery is patent without evidence of stenosis, occlusion or aneurysm. Left common carotid artery is patent without evidence of stenosis, occlusion or aneurysm. Mild plaque at the origin of the left internal carotid artery without significant stenosis. Right vertebral artery is patent to the basilar confluence without evidence stenosis, occlusion or aneurysm. Left vertebral artery is patent to the basilar confluence without evidence of stenosis, occlusion or aneurysm. Visualized paraspinal soft tissues are unremarkable. CTA HEAD: Minimal calcified plaque cavernous segment of the right internal carotid artery without significant stenosis. Right MCA is patent. Right MICHELLE is patent. Minimal calcified plaque at the cavernous segment left internal carotid artery estimated stenosis. Left MCA is patent. Left MICHELLE is patent. Basilar artery is patent without evidence of stenosis, occlusion or aneurysm. procurement coordinator are patent bilaterally. Visualized portions of the dural venous sinuses are patent. IMPRESSION: 1. Mild small vessel schema change, technically age indeterminate without recent prior imaging. No acute hemorrhage. 2. No large vessel occlusion. 3. Minimal calcified plaque cavernous segments of the internal carotid arteries bilaterally without significant stenosis. Mild plaque at the origin left internal carotid artery without significant stenosis. VTE Prophylaxis Ordered VTE Prophylaxis Devices: No VTE Pharmacological Prophylaxi: Yes Assessment/Plan Assessment/Plan Possible posterior circulation CVA Hypokalemia Hypomagnesemia HTN HDL Plan: Consultation neurology MRI brain pending Based on results of MRI echocardiogram pending Aspirin, statin PT/OT Resume home medications FEN - Cardiac diet PPX - Lovenox FULL CODE/surrogate decision-maker is her (Dmitri Kelly) Dispo - inpatient for above Justifications for Admission Other Justification ASHLEY SCHMIDT MD Sep 06, 2021 11:20
[2021-09-06] MEDS ORDERED: CALCIUM CARBONATE 500 MG TAB.CHEW PO PRN (11:30)
[2021-09-06] MEDS ORDERED: MAG HYDROX/ALUMINUM HYD/SIMETH 30 ML ORAL.SUSP PO PRN (11:30)
[2021-09-06] MEDS ORDERED: ACETAMINOPHEN 325 MG TABLET. PO PRN (11:30)
[2021-09-06] MEDS ORDERED: ZOLPIDEM 5 MG TABLET. PO PRN (11:30)
[2021-09-06] MEDS ORDERED: ONDANSETRON PF 4 MG/2 ML VIAL. IVP PRN (11:30)
[2021-09-06] MEDS ORDERED: MAGNESIUM HYDROXIDE 2,400 MG/30 ML ORAL.SUSP. PO PRN (11:30)
[2021-09-06] MEDS ORDERED: HYDROcodone/APAP 5/325MG 1 TAB TABLET PO PRN (11:30)
[2021-09-06] MEDS: ENOXAPARIN 40 MG/0.4 ML SYRINGE. SQ SCH ×2 (12:00→21:31)
[2021-09-06] MEDS ORDERED: MECLIZINE HCL 12.5 MG TABLET. PO PRN (12:15)
--- NOTE | 2021-09-06 16:17 | NUR ---
SS following for discharge planning. SS reviewed pt chart and discussed with pt RN. Pt is from home with spouse and is currently on room air. COVID19 negative. Neurology following. PO diet. PT/OT ordered. OT recommended home. SS will continue to follow for discharge planning.
--- NOTE | 2021-09-06 17:01 | RAD ---
EXAM: Brain MRI without contrast. HISTORY: Headache. Vertigo. TECHNIQUE: Multiplanar, multisequence magnetic resonance imaging of the brain was performed without c ontrast. COMPARISON: CT dated 09/05/2021. FINDINGS: There is no restricted diffusion to suggest acute or subacute infarction. There is no susce ptibility effect to suggest hemorrhage. There is no mass effect or midline shift. There is no hydroce phalus. There are a few small foci of signal change within the cerebral white matter, a nonspecific finding. There is mild cerebral volume loss. There is evidence of lens surgery. The paranasal sinuses mastoid air cells are unremarkable. There are normal flow voids within the cerebral vessels. There is no susp icious calvarial lesion. IMPRESSION: 1. No acute intracranial finding. 2. Few tiny foci of signal change within the cerebral white matter, likely due to chronic small vesse l disease in a patient of this age. The possibility of superimposed foci of signal change due to rn geriatric juma migraine headaches is also considered given the patient history. 3. Mild cerebral volume loss. Electronically signed by: Debi Ortiz MD (09/06/2021 4:59 PM) [id number]
[2021-09-06] MEDS ORDERED: MAGNESIUM SULFATE 1GM 100 ML IV ONE (21:00)
[2021-09-07 02:09] LABS: HEMOGLOBIN A1C 6.3 % (4.8-5.6)
[2021-09-07 02:56] VITALS: BP 171/97
[2021-09-07 07:00] VITALS: BP 174/77
[2021-09-07 07:17] LABS: CALCIUM 8.8 mg/dL (8.5-10.1); CREATININE 1.2 mg/dL (0.6-1.0); GFR 53.7; MAGNESIUM 1.7 mg/dL (1.8-2.4); POTASSIUM 3.6 mmol/L (3.5-5.1)
[2021-09-07] MEDS: CHOLECALCIFEROL (VITAMIN D3) 1,000 UNIT TABLET PO SCH (08:49)
[2021-09-07] MEDS: HYDROXYCHLOROQUINE 200 MG TABLET PO SCH (08:50)
[2021-09-07] MEDS: ASPIRIN CHEWABLE 81 MG TABLET. PO SCH (08:50)
[2021-09-07] MEDS: METOPROLOL SUCC 24HR ER 50 MG TAB.ER.24H. PO SCH (08:50)
[2021-09-07] MEDS: ATORVASTATIN CALCIUM 20 MG TABLET PO SCH (08:50)
[2021-09-07] MEDS: PANTOPRAZOLE 40 MG TABLET.DR. PO SCH (08:50)
[2021-09-07] MEDS: LOSARTAN POTASSIUM 50 MG TABLET. PO SCH (08:51)
[2021-09-07] MEDS: ENOXAPARIN 40 MG/0.4 ML SYRINGE. SQ SCH (08:56)
--- NOTE | 2021-09-07 10:05 | PDOC ---
PROGRESS NOTES Date of Service DATE: 09/07/21 TIME: 10:02 Assessment Problems Medical Problems: -(-1-)- -C-V-A- -(-k-i-u-e-b-r-a-l- -k-x-r-c-u-l-a-r- -p-p-z-i-d-e-n-t-)- Status: Acute NO Most likely this was an attack of migrainous vertigo, no evidence of subarachnoid hemorrhage, brainstem stroke, vestibular neuronitis Plan Okay for discharge Aspirin Statin Follow up with me as needed Discussed with patient's Subjective Feels better, wants to go home Objective Vital Signs Date Time Temp Pulse Resp B/P (MAP) Pulse Ox O2 Delivery O2 Flow Rate FiO2 09/07/21 08:51 61 174/77 09/07/21 07:00 98.2 18 94 Room Air 98.2 Intake and Output 09/07/21 07:00 Intake Total 960 ml Output Total 600 ml Balance 360 ml Intake Oral 960 ml Output Urine Total 600 ml PHYSICAL EXAM Alert. Oriented to time, place and person. PERRL. EOMI. CN: no focal findings. Muscle tone: normal. Muscle strength: 5/5 DTR: 2+ Plantar reflex: Flexor Gait: A little unsteady, essentially normal Sensory exam: no abnormal findings. No cerebellar signs elicited. Review of Relevant I have reviewed the following items roger (where applicable) has been applied. Labs Laboratory Tests Test 09/05/21 18:41 09/05/21 18:47 09/05/21 19:57 09/06/21 02:00 Glucose (Fingerstick) 70 mg/dL (70-99) White Blood Count 9.5 x10^3/uL (4.0-11.0) Red Blood Count 4.52 x10^6/uL (3.50-5.40) Hemoglobin 12.6 g/dL (12.0-15.5) Hematocrit 37.5 % (36.0-47.0) Mean Corpuscular Volume 83 fL (79-100) Mean Corpuscular Hemoglobin 28 pg (25-35) Mean Corpuscular Hemoglobin Concent 34 g/dL (31-37) Red Cell Distribution Width 15.6 % (11.5-14.5) Platelet Count 201 x10^3/uL (140-400) Neutrophils (%) (Auto) 41 % (31-73) Lymphocytes (%) (Auto) 50 % (24-48) Monocytes (%) (Auto) 8 % (0-9) Eosinophils (%) (Auto) 1 % (0-3) Basophils (%) (Auto) 0 % (0-3) Neutrophils # (Auto) 3.9 x10^3/uL (1.8-7.7) Lymphocytes # (Auto) 4.7 x10^3/uL (1.0-4.8) Monocytes # (Auto) 0.7 x10^3/uL (0.0-1.1) Eosinophils # (Auto) 0.1 x10^3/uL (0.0-0.7) Basophils # (Auto) 0.0 x10^3/uL (0.0-0.2) Prothrombin Time 13.2 SEC (11.7-14.0) Prothromb Time International Ratio 1.0 (0.8-1.1) Activated Partial Thromboplast Time 28 SEC (24-38) Sodium Level 140 mmol/L (136-145) Potassium Level 3.9 mmol/L (3.5-5.1) Chloride Level 104 mmol/L (98-107) Carbon Dioxide Level 31 mmol/L (21-32) Anion Gap 5 (6-14) Blood Urea Nitrogen 12 mg/dL (7-20) Creatinine 1.2 mg/dL (0.6-1.0) Estimated GFR (Cockcroft-Gault) 53.7 Glucose Level 83 mg/dL (70-99) Calcium Level 8.9 mg/dL (8.5-10.1) Troponin I High Sensitivity 11 ng/L (4-50) Urine Collection Type Unknown Urine Color (Auto) Colorless Urine Turbidity Clear Urine pH (Auto) 6.0 (<5.0-8.0) Urine Specific [place] 1.044 (1.000-1.030) Urine Protein (Auto) Negative mg/dL (Negative) Urine Glucose (Auto)(UA) Negative mg/dL (Negative) Urine Ketones (Auto) Negative mg/dL (Negative) Urine Blood (Auto) Trace (Negative) Urine Nitrite (Auto) Negative (Negative) Urine Bilirubin (Auto) Negative (Negative) Urine Urobilinogen (Auto) Normal mg/dL (Normal) Urine Leukocyte Esterase (Auto) Negative (Negative) Urine RBC Occ /HPF (0-2) Urine WBC 0 /HPF (0-4) Urine Squamous Epithelial Cells Few /LPF Urine Bacteria 0 /HPF (0-FEW) SARS-CoV-2 Antigen (Rapid) Negative (NEGATIVE) Test 09/06/21 04:50 09/07/21 06:20 White Blood Count 7.3 x10^3/uL (4.0-11.0) Red Blood Count 4.66 x10^6/uL (3.50-5.40) Hemoglobin 12.5 g/dL (12.0-15.5) Hematocrit 38.7 % (36.0-47.0) Mean Corpuscular Volume 83 fL (79-100) Mean Corpuscular Hemoglobin 27 pg (25-35) Mean Corpuscular Hemoglobin Concent 32 g/dL (31-37) Red Cell Distribution Width 16.0 % (11.5-14.5) Platelet Count 195 x10^3/uL (140-400) Neutrophils (%) (Auto) 48 % (31-73) Lymphocytes (%) (Auto) 43 % (24-48) Monocytes (%) (Auto) 8 % (0-9) Eosinophils (%) (Auto) 1 % (0-3) Basophils (%) (Auto) 0 % (0-3) Neutrophils # (Auto) 3.5 x10^3/uL (1.8-7.7) Lymphocytes # (Auto) 3.1 x10^3/uL (1.0-4.8) Monocytes # (Auto) 0.6 x10^3/uL (0.0-1.1) Eosinophils # (Auto) 0.1 x10^3/uL (0.0-0.7) Basophils # (Auto) 0.0 x10^3/uL (0.0-0.2) Sodium Level 142 mmol/L (136-145) 141 mmol/L (136-145) Potassium Level 3.0 mmol/L (3.5-5.1) 3.6 mmol/L (3.5-5.1) Chloride Level 104 mmol/L (98-107) 106 mmol/L (98-107) Carbon Dioxide Level 27 mmol/L (21-32) 26 mmol/L (21-32) Anion Gap 11 (6-14) 9 (6-14) Blood Urea Nitrogen 9 mg/dL (7-20) 11 mg/dL (7-20) Creatinine 1.0 mg/dL (0.6-1.0) 1.2 mg/dL (0.6-1.0) Estimated GFR (Cockcroft-Gault) 66.3 53.7 BUN/Creatinine Ratio 9 (6-20) Glucose Level 102 mg/dL (70-99) 94 mg/dL (70-99) Hemoglobin A1c 6.3 % (4.8-5.6) Calcium Level 8.9 mg/dL (8.5-10.1) 8.8 mg/dL (8.5-10.1) Magnesium Level 1.7 mg/dL (1.8-2.4) 1.7 mg/dL (1.8-2.4) Total Bilirubin 0.5 mg/dL (0.2-1.0) Aspartate Amino Transf (AST/SGOT) 28 U/L (15-37) Alanine Aminotransferase (ALT/SGPT) 33 U/L (14-59) Alkaline Phosphatase 69 U/L (46-116) Total Protein 7.0 g/dL (6.4-8.2) Albumin 3.0 g/dL (3.4-5.0) Albumin/Globulin Ratio 0.8 (1.0-1.7) Triglycerides Level 117 mg/dL (0-150) Cholesterol Level 159 mg/dL (0-200) LDL Cholesterol, Calculated 58 mg/dL (0-100) VLDL Cholesterol, Calculated 23 mg/dL (0-40) Non-HDL Cholesterol Calculated 81 mg/dL (0-129) HDL Cholesterol 78 mg/dL (40-60) Cholesterol/HDL Ratio 2.0 Vitamin B12 Level 718 pg/mL (247-911) Thyroid Stimulating Hormone (TSH) 1.924 uIU/mL (0.358-3.74) Laboratory Tests Test 09/07/21 06:20 Sodium Level 141 mmol/L (136-145) Potassium Level 3.6 mmol/L (3.5-5.1) Chloride Level 106 mmol/L (98-107) Carbon Dioxide Level 26 mmol/L (21-32) Anion Gap 9 (6-14) Blood Urea Nitrogen 11 mg/dL (7-20) Creatinine 1.2 mg/dL (0.6-1.0) Estimated GFR (Cockcroft-Gault) 53.7 Glucose Level 94 mg/dL (70-99) Calcium Level 8.8 mg/dL (8.5-10.1) Magnesium Level 1.7 mg/dL (1.8-2.4) Medications Current Medications Iohexol (Omnipaque 300 Mg/ml) 75 ml 1X ONCE IV Last administered on 09/05/21at 18:45; Start 09/05/21 at 18:45; Stop 09/05/21 at 18:46; Status DC Info (CONTRAST GIVEN -- Rx MONITORING) 1 each PRN DAILY PRN MC SEE COMMENTS; Start 09/05/21 at 18:45; Stop 09/07/21 at 18:44 Lorazepam (Ativan Inj) 1 mg 1X ONCE IVP ; Start 09/05/21 at 19:00; Stop 09/05/21 at 19:01; Status DC Ondansetron HCl (Zofran) 4 mg PRN Q4HRS PRN IVP NAUSEA/VOMITING 1ST CHOICE; Start 09/05/21 at 21:15 Acetaminophen (Tylenol) 650 mg PRN Q6HRS PRN PO MILD PAIN / TEMP > 100.3'F; Start 09/05/21 at 21:15 Aspirin (Aspirin Chewable) 81 mg DAILY PO Last administered on 09/07/21at 08:50; Start 09/06/21 at 09:00 Atorvastatin Calcium (Lipitor) 20 mg DAILY PO Last administered on 09/07/21at 08:50; Start 09/06/21 at 09:00 Hydroxychloroquine Sulfate (Plaquenil) 200 mg DAILY PO Last administered on 09/07/21at 08:50; Start 09/06/21 at 09:00 Metoprolol Succinate (Toprol Xl) 50 mg DAILY PO Last administered on 09/07/21at 08:50; Start 09/06/21 at 09:00 Pantoprazole Sodium (Protonix) 40 mg DAILYAC PO Last administered on 09/07/21at 08:50; Start 09/06/21 at 07:30 Tizanidine HCl (Zanaflex) 4 mg PRN DAILY PRN PO muscle spasms; Start 09/06/21 at 07:00 Tramadol HCl (Ultram) 50 mg PRN DAILY PRN PO MODERATE PAIN 4-6; Start 09/06/21 at 07:00 Losartan Potassium (Cozaar) 100 mg DAILY PO Last administered on 09/07/21at 08:51; Start 09/06/21 at 09:00 Vitamin D (Vitamin D3) 2,000 unit DAILY PO Last administered on 09/07/21at 08:49; Start 09/06/21 at 09:00 Potassium Chloride (Klor-Con) 40 meq 1X ONCE PO Last administered on 09/06/21at 09:36; Start 09/06/21 at 07:30; Stop 09/06/21 at 07:31; Status DC Potassium Chloride (Klor-Con) 40 meq 1X ONCE PO Last administered on 09/06/21at 13:11; Start 09/06/21 at 11:30; Stop 09/06/21 at 11:31; Status DC Ondansetron HCl (Zofran) 4 mg PRN Q6HRS PRN IVP NAUSEA/VOMITING; Start 09/06/21 at 11:30 Al Hydroxide/Mg Hydroxide (Mylanta Plus Xs) 30 ml PRN Q3HRS PRN PO HEARTBURN / GAS; Start 09/06/21 at 11:30 Calcium Carbonate/ Glycine (Tums) 500 mg PRN Q3HRS PRN PO UPSET STOMACH; Start 09/06/21 at 11:30 Zolpidem Tartrate (Ambien) 5 mg PRN QHS PRN PO INSOMNIA, MAY REPEAT IN 1HR; Start 09/06/21 at 11:30 Acetaminophen/ Hydrocodone Bitart (Lortab 5/325) 1 tab PRN Q4HRS PRN PO MILD PAIN 1-3; Start 09/06/21 at 11:30 Acetaminophen (Tylenol) 650 mg PRN Q6HRS PRN PO Headaches, Temp > 101.5F; Start 09/06/21 at 11:30 Magnesium Hydroxide (Milk Of Magnesia) 2,400 mg PRN Q12HR PRN PO CONSTIPATION; Start 09/06/21 at 11:30 Enoxaparin Sodium (Lovenox 40mg Syringe) 40 mg Q12HR SQ ; Start 09/06/21 at 12:00 Meclizine HCl (Antivert) 12.5 mg PRN Q6HRS PRN PO DIZZINESS; Start 09/06/21 at 12:15 Lorazepam (Ativan Inj) 2 mg PRN Q4HRS PRN IVP ANXIETY / AGITATION; Start 09/06/21 at 12:15 Magnesium Sulfate/ Dextrose 100 ml @ 100 mls/hr 1X ONCE IV Last administered on 09/06/21at 21:58; Start 09/06/21 at 21:00; Stop 09/06/21 at 21:59; Status DC Active Scripts Active Reported Tizanidine Hcl 4 Mg Tablet 1 Tab PO DAILY [vitamin D] 2,000 Mg PO DAILY Hydrochlorothiazide Capsule (Hydrochlorothiazide) 12.5 Mg Capsule 12.5 Mg PO DAILY Pantoprazole Sodium (Pantoprazole Sodium) 40 Mg Tablet.dr 40 Mg PO DAILYAC Metoprolol Succinate ( Xl ) (Metoprolol Succinate) 25 Mg Tab.er.24h 50 Mg PO DAILY Losartan Potassium 100 Mg Tablet 100 Mg PO DAILY Aspirin 81 Mg Tab.chew 1 Tab PO DAILY Atorvastatin Calcium 20 Mg Tablet 1 Tab PO DAILY Tramadol Hcl 50 Mg Tablet 50 Mg PO DAILY PRN Hydroxychloroquine Sulfate 200 Mg Tablet 200 Mg PO DAILY Vitals/I & O Vital Sign - Last 24 Hours 09/06/21 09/06/21 09/06/21 09/06/21 11:00 15:00 19:59 23:37 Temp 98.2 96.1 98.0 98.4 98.2 96.1 98.0 98.4 Pulse 66 71 68 68 Resp 16 18 16 16 B/P (MAP) 159/75 (103) 172/83 (112) 176/94 (121) 160/88 (112) Pulse Ox 93 94 97 97 O2 Delivery Room Air Room Air Room Air Room Air 09/07/21 09/07/21 09/07/21 09/07/21 02:56 07:00 08:50 08:51 Temp 97.8 98.2 97.8 98.2 Pulse 69 61 61 61 Resp 18 18 B/P (MAP) 171/97 (121) 174/77 (109) 174/77 174/77 Pulse Ox 97 94 O2 Delivery Room Air Room Air Intake and Output 09/06/21 09/06/21 09/07/21 15:00 23:00 07:00 Intake Total 380 ml 180 ml 400 ml Output Total 300 ml 300 ml Balance 80 ml -120 ml 400 ml Images Brain MRI without contrast, 09/06/2021 4:59 PM HISTORY: Headache. Vertigo. TECHNIQUE: Multiplanar, multisequence magnetic resonance imaging of the brain was performed without contrast. COMPARISON: CT dated 09/05/2021. FINDINGS: There is no restricted diffusion to suggest acute or subacute infarction. There is no susceptibility effect to suggest hemorrhage. There is no mass effect or midline shift. There is no hydrocephalus. There are a few small foci of signal change within the cerebral white matter, a nonspecific finding. There is mild cerebral volume loss. There is evidence of lens surgery. The paranasal sinuses mastoid air cells are unremarkable. There are normal flow voids within the cerebral vessels. There is no suspicious calvarial lesion. IMPRESSION: 1. No acute intracranial finding. 2. Few tiny foci of signal change within the cerebral white matter, likely due to chronic small vessel disease in a patient of this age. The possibility of superimposed foci of signal change due to chronic migraine headaches is also considered given the patient history. 3. Mild cerebral volume loss. Justicifation of Admission Dx: Justifications for Admission: Justification of Admission Dx: N/A CLAUDE CHAVES MD Sep 07, 2021 10:05
[2021-09-07] MEDS ORDERED: MAGNESIUM SULFATE 2GM 50 ML IV ONE (11:00)
[2021-09-07 11:15] VITALS: BP 157/80
--- NOTE | 2021-09-07 13:38 | PDOC ---
[facility] PROGRESS NOTE Date of Service DOS: DATE: 09/07/21 TIME: 13:36 Chief Complaint Chief Complaint Possible posterior circulation CVA Hypokalemia Hypomagnesemia HTN HDL History of Present Illness History of Present Illness 09/07: Patient seen with family at bedside. She notes improvement in her dizziness. MRI showed no acute intracranial findings. Patient stable to discharge home with family care and close PCP follow-up. Greater than 30 minutes spent managing the discharge of this patient. Vitals/I&O Vitals/I&O: Vital Signs Date Time Temp Pulse Resp B/P (MAP) Pulse Ox O2 Delivery O2 Flow Rate FiO2 09/07/21 11:15 97.7 60 18 157/80 (105) 93 Room Air 97.7 I & O 09/06/21 09/06/21 09/07/21 15:00 23:00 07:00 Intake Total 380 ml 180 ml 400 ml Output Total 300 ml 300 ml Balance 80 ml -120 ml 400 ml Physical Exam General: Alert, Oriented X3, Cooperative Heart: Regular rate Lungs: Clear Abdomen: Soft, No tenderness Extremities: No clubbing, No cyanosis Skin: No rashes, No breakdown Labs Labs: Laboratory Tests Test 09/07/21 06:20 Sodium Level 141 mmol/L (136-145) Potassium Level 3.6 mmol/L (3.5-5.1) Chloride Level 106 mmol/L (98-107) Carbon Dioxide Level 26 mmol/L (21-32) Anion Gap 9 (6-14) Blood Urea Nitrogen 11 mg/dL (7-20) Creatinine 1.2 mg/dL (0.6-1.0) Estimated GFR (Cockcroft-Gault) 53.7 Glucose Level 94 mg/dL (70-99) Calcium Level 8.8 mg/dL (8.5-10.1) Magnesium Level 1.7 mg/dL (1.8-2.4) Assessment and Plan Assessmemt and Plan Problems Medical Problems: (1) CVA (cerebral vascular accident) Status: Acute Comment Review of Relevant I have reviewed the following items roger (where applicable) has been applied. Medications: Current Medications Medications (Trade) Dose Ordered Sig/Josh Route PRN Reason Start Time Stop Time Status Last Admin Dose Admin Magnesium Sulfate/ Dextrose 100 ml @ 100 mls/hr 1X ONCE IV 09/06/21 21:00 09/06/21 21:59 DC 09/06/21 21:58 Magnesium Sulfate 50 ml @ 25 mls/hr 1X ONCE IV 09/07/21 11:00 09/07/21 12:59 DC 09/07/21 11:31 Justifications for Admission Other Justification ASHLEY SCHMIDT MD Sep 07, 2021 13:38
--- NOTE | 2021-09-07 13:40 | PDOC3 ---
Discharge Summary Visit Information Date of Admission: Sep 06, 2021 Date of Discharge: Sep 07, 2021 Final Diagnosis Problems Medical Problems: (1) CVA (cerebral vascular accident) Status: Acute Brief Hospital Course Allergies Allergies Coded Allergies Type Severity Reaction Last Updated Verified No Known Drug Allergies 05/05/15 No Vital Signs Vital Signs Date Time Temp Pulse Resp B/P (MAP) Pulse Ox O2 Delivery O2 Flow Rate FiO2 09/07/21 11:15 97.7 60 18 157/80 (105) 93 Room Air 97.7 Lab Results Laboratory Tests Test 09/05/21 18:41 09/05/21 18:47 09/05/21 19:57 09/06/21 02:00 Glucose (Fingerstick) 70 mg/dL (70-99) White Blood Count 9.5 x10^3/uL (4.0-11.0) Red Blood Count 4.52 x10^6/uL (3.50-5.40) Hemoglobin 12.6 g/dL (12.0-15.5) Hematocrit 37.5 % (36.0-47.0) Mean Corpuscular Volume 83 fL (79-100) Mean Corpuscular Hemoglobin 28 pg (25-35) Mean Corpuscular Hemoglobin Concent 34 g/dL (31-37) Red Cell Distribution Width 15.6 % (11.5-14.5) Platelet Count 201 x10^3/uL (140-400) Neutrophils (%) (Auto) 41 % (31-73) Lymphocytes (%) (Auto) 50 % (24-48) Monocytes (%) (Auto) 8 % (0-9) Eosinophils (%) (Auto) 1 % (0-3) Basophils (%) (Auto) 0 % (0-3) Neutrophils # (Auto) 3.9 x10^3/uL (1.8-7.7) Lymphocytes # (Auto) 4.7 x10^3/uL (1.0-4.8) Monocytes # (Auto) 0.7 x10^3/uL (0.0-1.1) Eosinophils # (Auto) 0.1 x10^3/uL (0.0-0.7) Basophils # (Auto) 0.0 x10^3/uL (0.0-0.2) Prothrombin Time 13.2 SEC (11.7-14.0) Prothromb Time International Ratio 1.0 (0.8-1.1) Activated Partial Thromboplast Time 28 SEC (24-38) Sodium Level 140 mmol/L (136-145) Potassium Level 3.9 mmol/L (3.5-5.1) Chloride Level 104 mmol/L (98-107) Carbon Dioxide Level 31 mmol/L (21-32) Anion Gap 5 (6-14) Blood Urea Nitrogen 12 mg/dL (7-20) Creatinine 1.2 mg/dL (0.6-1.0) Estimated GFR (Cockcroft-Gault) 53.7 Glucose Level 83 mg/dL (70-99) Calcium Level 8.9 mg/dL (8.5-10.1) Troponin I High Sensitivity 11 ng/L (4-50) Urine Collection Type Unknown Urine Color (Auto) Colorless Urine Turbidity Clear Urine pH (Auto) 6.0 (<5.0-8.0) Urine Specific [place] 1.044 (1.000-1.030) Urine Protein (Auto) Negative mg/dL (Negative) Urine Glucose (Auto)(UA) Negative mg/dL (Negative) Urine Ketones (Auto) Negative mg/dL (Negative) Urine Blood (Auto) Trace (Negative) Urine Nitrite (Auto) Negative (Negative) Urine Bilirubin (Auto) Negative (Negative) Urine Urobilinogen (Auto) Normal mg/dL (Normal) Urine Leukocyte Esterase (Auto) Negative (Negative) Urine RBC Occ /HPF (0-2) Urine WBC 0 /HPF (0-4) Urine Squamous Epithelial Cells Few /LPF Urine Bacteria 0 /HPF (0-FEW) SARS-CoV-2 Antigen (Rapid) Negative (NEGATIVE) Test 09/06/21 04:50 09/07/21 06:20 White Blood Count 7.3 x10^3/uL (4.0-11.0) Red Blood Count 4.66 x10^6/uL (3.50-5.40) Hemoglobin 12.5 g/dL (12.0-15.5) Hematocrit 38.7 % (36.0-47.0) Mean Corpuscular Volume 83 fL (79-100) Mean Corpuscular Hemoglobin 27 pg (25-35) Mean Corpuscular Hemoglobin Concent 32 g/dL (31-37) Red Cell Distribution Width 16.0 % (11.5-14.5) Platelet Count 195 x10^3/uL (140-400) Neutrophils (%) (Auto) 48 % (31-73) Lymphocytes (%) (Auto) 43 % (24-48) Monocytes (%) (Auto) 8 % (0-9) Eosinophils (%) (Auto) 1 % (0-3) Basophils (%) (Auto) 0 % (0-3) Neutrophils # (Auto) 3.5 x10^3/uL (1.8-7.7) Lymphocytes # (Auto) 3.1 x10^3/uL (1.0-4.8) Monocytes # (Auto) 0.6 x10^3/uL (0.0-1.1) Eosinophils # (Auto) 0.1 x10^3/uL (0.0-0.7) Basophils # (Auto) 0.0 x10^3/uL (0.0-0.2) Sodium Level 142 mmol/L (136-145) 141 mmol/L (136-145) Potassium Level 3.0 mmol/L (3.5-5.1) 3.6 mmol/L (3.5-5.1) Chloride Level 104 mmol/L (98-107) 106 mmol/L (98-107) Carbon Dioxide Level 27 mmol/L (21-32) 26 mmol/L (21-32) Anion Gap 11 (6-14) 9 (6-14) Blood Urea Nitrogen 9 mg/dL (7-20) 11 mg/dL (7-20) Creatinine 1.0 mg/dL (0.6-1.0) 1.2 mg/dL (0.6-1.0) Estimated GFR (Cockcroft-Gault) 66.3 53.7 BUN/Creatinine Ratio 9 (6-20) Glucose Level 102 mg/dL (70-99) 94 mg/dL (70-99) Hemoglobin A1c 6.3 % (4.8-5.6) Calcium Level 8.9 mg/dL (8.5-10.1) 8.8 mg/dL (8.5-10.1) Magnesium Level 1.7 mg/dL (1.8-2.4) 1.7 mg/dL (1.8-2.4) Total Bilirubin 0.5 mg/dL (0.2-1.0) Aspartate Amino Transf (AST/SGOT) 28 U/L (15-37) Alanine Aminotransferase (ALT/SGPT) 33 U/L (14-59) Alkaline Phosphatase 69 U/L (46-116) Total Protein 7.0 g/dL (6.4-8.2) Albumin 3.0 g/dL (3.4-5.0) Albumin/Globulin Ratio 0.8 (1.0-1.7) Triglycerides Level 117 mg/dL (0-150) Cholesterol Level 159 mg/dL (0-200) LDL Cholesterol, Calculated 58 mg/dL (0-100) VLDL Cholesterol, Calculated 23 mg/dL (0-40) Non-HDL Cholesterol Calculated 81 mg/dL (0-129) HDL Cholesterol 78 mg/dL (40-60) Cholesterol/HDL Ratio 2.0 Vitamin B12 Level 718 pg/mL (247-911) Thyroid Stimulating Hormone (TSH) 1.924 uIU/mL (0.358-3.74) Laboratory Tests Test 09/07/21 06:20 Sodium Level 141 mmol/L (136-145) Potassium Level 3.6 mmol/L (3.5-5.1) Chloride Level 106 mmol/L (98-107) Carbon Dioxide Level 26 mmol/L (21-32) Anion Gap 9 (6-14) Blood Urea Nitrogen 11 mg/dL (7-20) Creatinine 1.2 mg/dL (0.6-1.0) Estimated GFR (Cockcroft-Gault) 53.7 Glucose Level 94 mg/dL (70-99) Calcium Level 8.8 mg/dL (8.5-10.1) Magnesium Level 1.7 mg/dL (1.8-2.4) Brief Hospital Course Ms. Morales is a 70 old female who presented with dizziness with concerns for posterior CVA. Consultation was placed to neurology. She had MRI brain that showed no acute intracranial finding, few tiny foci of signal change within the cerebral white matter, likely due to chronic small vessel disease in a patient of this age, mild cerebral volume loss. She was stable to discharge home with family care and close PCP follow-up. Discharge Information Condition at Discharge: Stable Disposition/Orders: D/C to Home Scheduled Aspirin (Aspirin) 81 Mg Tab.chew, 1 TAB PO DAILY for prophylaxis, #30 Ref 3 (Reported) Entered as Reported by: YUMIKO CRUZ on 09/05/212348 Last Action: Continued on 09/06/21655 by DIANN AMADOR MD Atorvastatin Calcium (Atorvastatin Calcium) 20 Mg Tablet, 1 TAB PO DAILY for cholesterol, #30 Ref 5 (Reported) Entered as Reported by: YUMIKO CRUZ on 09/05/212348 Last Action: Continued on 09/06/21655 by DIANN AMADOR MD Hydrochlorothiazide (Hydrochlorothiazide Capsule ) 12.5 Mg Capsule, 12.5 MG PO DAILY for DIURETIC, Ref 0 (Reported) Entered as Reported by: YUMIKO CRUZ on 09/05/212349 Last Action: New Order on 09/05/212349 by YUMIKO CRUZ Hydroxychloroquine Sulfate (Hydroxychloroquine Sulfate) 200 Mg Tablet, 200 MG PO DAILY, (Reported) Entered as Reported by: NATHALY MYERS on 05/05/15 100 Last Action: Continued on 09/06/21655 by DIANN AMADOR MD Losartan Potassium (Losartan Potassium) 100 Mg Tablet, 100 MG PO DAILY for HYPERTENSION, (Reported) Entered as Reported by: YUMIKO CRUZ on 09/05/212348 Last Action: Converted on 09/06/21655 by DIANN AMADOR MD Metoprolol Succinate (Metoprolol Succinate ( Xl )) 25 Mg Tab.er.24h, 50 MG PO DAILY for HTN, #30 Ref 5 (Reported) Entered as Reported by: YUMIKO CRUZ on 09/05/212348 Last Action: Continued on 09/06/21655 by DIANN AMADOR MD Pantoprazole Sodium (Pantoprazole Sodium ) 40 Mg Tablet.dr, 40 MG PO DAILYAC for GERD, (Reported) Entered as Reported by: YUMIKO CRUZ on 09/05/212349 Last Action: Continued on 09/06/21655 by DIANN AMADOR MD Tizanidine Hcl (Tizanidine Hcl) 4 Mg Tablet, 1 TAB PO DAILY for muscle relaxer, #60 (Reported) Entered as Reported by: YUMIKO CRUZ on 09/05/212349 Last Action: Continued on 09/06/21655 by DIANN AMADOR MD [vitamin D] , 2,000 MG PO DAILY for supplement, (Reported) Entered as Reported by: YUMIKO CRUZ on 09/05/21 5340 Last Action: Converted on 09/06/21655 by DIANN AMADOR MD Scheduled PRN Tramadol Hcl (Tramadol Hcl) 50 Mg Tablet, 50 MG PO DAILY PRN for PAIN, Ref 0 (Reported) Entered as Reported by: NATHALY MYERS on 05/05/15 1008 Last Action: Continued on 09/06/21655 by DIANN AMADOR MD Justicifation of Admission Dx: Justifications for Admission: Justification of Admission Dx: N/A ASHLEY SCHMIDT MD Sep 07, 2021 13:40
[2021-09-07] MEDS ORDERED: MECL12.582 PO (13:42)
== END 2021-09-07 14:40 | disposition home or self-care (01) | DRG 301 ==
LOC: ER 17:29 → 6 SOUTH 18:54
PROVIDERS: ADMIT Internal Medicine; ATTEND Internal Medicine
DX: I73.9 Peripheral vascular disease, unspecified (principal); Z20.822 Contact with and (suspected) exposure to COVID-19; E78.5 Hyperlipidemia, unspecified; E83.42 Hypomagnesemia; E87.6 Hypokalemia; G43.909 Migraine, unspecified, not intractable, without status migrainosus; I10 Essential (primary) hypertension; K21.9 Gastro-esophageal reflux disease without esophagitis; M06.9 Rheumatoid arthritis, unspecified; Z82.49 Family history of ischemic heart disease and other diseases of the circulatory system; Z90.710 Acquired absence of both cervix and uterus; Z79.899 Other long term (current) drug therapy; Z90.49 Acquired absence of other specified parts of digestive tract
CPT/HCPCS: 36415; 70450; 70496; 70498; 70551; 80048; 80053; 80061; 81001; 82607; 82962; 83036; 83735; 84443; 84484; 85025; 85610; 85730; 87426; J3475; Q9967; 92610-GN; 97116-GP; 99285-25; G0378